=== PATIENT | female | born 1930 | race African-American/Black ===

== ENCOUNTER 2018-07-10 09:07 | Emergency (ER) | payer OTHER ==
--- OUTSIDE RECORDS SUMMARY | 2018-07-10 09:10 | XMS REPORT | Clinical Summary ---
:1930 Author Organization [facility] Address [address] [place] [address] Care Team Providers Name Role Phone Unavailable Primary Care Provider Unavailable Allergies No Known Allergies Medications Medication Sig Dispensed Refills Start Date End Date Status pravastatin Take 40 mg by mouth 0 Active (PRAVACHOL) 40 MG daily. tablet aspirin 81 MG EC Take 81 mg by mouth. 0 Active tablet allopurinol Take 100 mg by mouth 0 Active (ZYLOPRIM) 100 MG daily. tablet albuterol HFA Inhale 1 puff by 0 Active (VENTOLIN HFA) 90 mouth via inhaler mcg/actuation every 4 (four) hours inhaler as needed for Wheezing. sodium bicarbonate Take 2 tablets by 0 Active 650 MG tablet mouth 4 (four) times daily. acetaminophen-codei Take 1 tablet by 0 Active ne (TYLENOL #3) mouth every 4 (four) 300-30 mg per hours as needed for tablet Pain. insulin glargine Inject 10 Units 0 Active (LANTUS) 100 subcutaneously every unit/mL injection morning Use as directed . amLODIPine Take 1 tablet (10 mg 30 tablet 1 07/20/2016 Active (NORVASC) 10 MG total) by mouth tablet daily. Active Problems Problem Noted Date Acute on chronic diastolic CHF (congestive heart failure), NYHA class 1 2016 Anemia of chronic disease 07/19/2016 Dyspnea on exertion 07/19/2016 Occult blood positive stool 07/18/2016 Social History Tobacco Use Types Packs/Day Years Used Date Never Smoker Tobacco Cessation: Counseling Given: No Alcohol Use Drinks/Week oz/Week Comments No Sex Assigned at Date Recorded Not on file Job Start Date Occupation Industry Not on file Not on file Not on file Travel History Travel Start Travel End No recent travel history available. Last Filed Vital Signs Not on file Plan of Treatment Not on file Results Not on fileafter 07/09/2017 Insurance Payer Benefit Plan / Subscriber ID Type Phone Address Group [facility] xxxxxxxxx [facility] Contracted MEDICARE MGD [facility] MEDICAID MEDICAID [facility] xxxxxxxxx Medicaid Advance Directives For more information, please contact:[address] [phone] Code Status Date Activated Date Inactivated Comments Full Code 07/18/2016 6:52 PM 07/20/2016 6:22 PM This code status was determined by: Patient
--- OUTSIDE RECORDS SUMMARY | 2018-07-10 09:10 | XMS REPORT ---
:1930 Author Organization [facility] Address [address] [place] [address] [address]. [address] [place] [address] Care Team Providers Name Role Phone JOE GUTIÉRREZ Unavailable Unavailable Problems This patient has no known problems. Allergies, Adverse Reactions, Alerts This patient has no known allergies or adverse reactions. Medications This patient has no known medications. Results Test Description Test Time Test Comments Text Results Atomic Results Result Comments PERIPHERAL BLOOD SMEAR - PATHOLOGIST REVIEW 2016-07-20 13:08:00 Test Item Value Reference Range Comments RBC MORPHOLOGY (BEAKER) (test ntvt=3177) Anisocytosis PERIPHERAL SMR REVIEW (BEAKER) (test Cell counts confirmed. bdeh=4232) [id number] (BEAKER) (test Kierra Stroud M.D. (electronic ufuv=4264) signature) POCT-GLUCOSE [id number] 12:33:00 Test Item Value Reference Range Comments POC-GLUCOSE METER (BEAKER) 191 mg/dL 70-[address] [facility] [address] [facility] (test ugqi=1953) [facility] [address] HEMOGLOBIN [id number] 09:06:00 Test Item Value Reference Range Comments HEMOGLOBIN A1C (BEAKER) (test vkyv=766) 5.8 % 4.3-6.1 CBC WITH PLATELET COUNT + MANUAL [id number] 08:45:00 Test Item Value Reference Range Comments WHITE BLOOD CELL COUNT (BEAKER) (test ldbw=360) 7.4 K/ L 4.0-10.0 RED BLOOD CELL COUNT (BEAKER) (test zcih=370) 3.56 M/ L 4.00-5.00 HEMOGLOBIN (BEAKER) (test rajz=853) 9.9 GM/DL 12.0-15.0 HEMATOCRIT (BEAKER) (test vizw=486) 31.2 % 36.0-45.0 MEAN CORPUSCULAR VOLUME (BEAKER) (test aikt=473) 87.6 fL 82.0-99.0 MEAN CORPUSCULAR HEMOGLOBIN (BEAKER) (test 27.7 pg 27.0-33.0 thhj=805) MEAN CORPUSCULAR HEMOGLOBIN CONC (BEAKER) (test 31.6 GM/DL 32.0-36.0 rjgt=592) RED CELL DISTRIBUTION WIDTH (BEAKER) (test 15.4 % 10.3-14.2 bpxb=363) PLATELET COUNT (BEAKER) (test agry=607) 403 K/CU MM 150-430 MEAN PLATELET VOLUME (BEAKER) (test zmfb=859) 7.6 fL 6.5-10.5 NUCLEATED RED BLOOD CELLS (BEAKER) (test 0 /100 WBC 0-0 fsnf=721) 0.00(MANUAL DIFFERENTIAL)2016-07-20 08:45:00 Test Item Value Reference Range Comments NEUTROPHILS - REL (DIFF) (BEAKER) (test wbfc=9756) 60 % LYMPHOCYTES - REL (DIFF) (BEAKER) (test qnbk=1059) 22 % MONOCYTES - REL (DIFF) (BEAKER) (test aqcj=7487) 6 % EOSINOPHILS - REL (DIFF) (BEAKER) (test juqm=6008) 6 % BANDS - REL (DIFF) (BEAKER) (test jout=3396) 6 % 0-10 NEUTROPHILS - ABS (DIFF) (BEAKER) (test mlbv=6427) 4.44 K/ L 1.80-8.00 LYMPHOCYTES - ABS (DIFF) (BEAKER) (test pdhj=2790) 1.63 K/ L 1.48-4.50 MONOCYTES - ABS (DIFF) (BEAKER) (test opmi=5854) 0.44 K/ L 0.00-1.30 EOSINOPHILS - ABS (DIFF) (BEAKER) (test cuww=4678) 0.44 K/ L 0.00-0.50 BANDS-ABS (DIFF) (BEAKER) (test uznm=9244) 0.4 K/ L 0.0-0.8 TOTAL COUNTED (BEAKER) (test pevt=1157) 100 BANDS + SEGMENTED NEUTROPHILS (BEAKER) (test 4.88 nsbh=2786) WBC MORPHOLOGY (BEAKER) (test nvri=475) Normal PLT MORPHOLOGY (BEAKER) (test tcuo=077) Normal RBC MORPHOLOGY (BEAKER) (test xcqd=754) Normal POCT-GLUCOSE [id number] 08:41:00 Test Item Value Reference Range Comments POC-GLUCOSE METER ([facility]) 132 mg/dL 70-110 TESTED AT [address] (test wudy=2131) [facility] [address] T4, [id number] 03:38:00 Test Item Value Reference Range Comments FREE T4 (BEAKER) (test trnv=630) 1.15 ng/dL 0.70-1.48 [id number] 03:38:00 Test Item Value Reference Range Comments THYROID STIMULATING HORMONE (BEAKER) (test 4.50 uIU/mL 0.35-4.94 xvoy=330) B-TYPE NATRIURETIC FACTOR (BNP)2016-07-20 03:23:00 Test Item Value Reference Range Comments B-TYPE NATRIURETIC PEPTIDE (BEAKER) (test 255 pg/mL 0-100 irtq=674) LIPID [id number] 03:19:00 Test Item Value Reference Range Comments TRIGLYCERIDES (BEAKER) (test ytov=172) 106 mg/dL CHOLESTEROL (BEAKER) (test ebwl=942) 152 mg/dL HDL CHOLESTEROL (BEAKER) (test oyji=877) 42 mg/dL LDL CHOLESTEROL CALCULATED (BEAKER) (test 89 mg/dL fwdk=322) Triglyceride Reference Range: Low Risk <150 Borderline 150- 199 High Risk 200-499 Very High Risk >=500Cholesterol Reference Range: Low Risk <200 Borderline 200-239 High Risk > 240HDL Cholesterol Reference Range: Low Risk >=60 High Risk <40LDL Cholesterol Reference Range: Optimal <100 Near Optimal 100-129 Borderline 130-159 High 160-189 Very High >=190POCT-GLUCOSE [id number] 20:45:00 Test Item Value Reference Range Comments POC-GLUCOSE METER (AKER) 145 mg/dL 70-110 TESTED AT [place] [id number] [facility] (test vsme=2359) [facility] [address] CREATININE, RANDOM [id number] 17:54:00 Test Item Value Reference Range Comments CREATININE URINE ([facility]) (test vgyj=317) 21.0 mg/dL Reference Range: No NormalsPROTEIN, RANDOM [id number] 17:54:00 Test Item Value Reference Range Comments PROTEIN, URINE (BEAKER) (test hplm=9298) 15 mg/dL 0-14 SODIUM, RANDOM [id number] 17:54:00 Test Item Value Reference Range Comments SODIUM URINE (BEAKER) (test wlci=529) 146 meq/L Reference Range: No NormalsURINALYSIS W/ [id number] 17:42:00 Test Item Value Reference Range Comments COLOR (BEAKER) (test rkhh=329) Colorless CLARITY (BEAKER) (test sbek=341) Clear SPECIFIC GRAVITY UA (BEAKER) (test jrns=682) 1.005 1.001-1.035 PH UA (BEAKER) (test ncnx=140) 7.5 5.0-8.0 PROTEIN UA (BEAKER) (test zgoo=623) Negative Negative GLUCOSE UA (BEAKER) (test lupq=720) Negative Negative KETONES UA (BEAKER) (test trin=853) Negative Negative BILIRUBIN UA (BEAKER) (test vvlt=807) Negative Negative BLOOD UA (BEAKER) (test owmy=341) Negative Negative NITRITE UA (BEAKER) (test rumf=446) Negative Negative LEUKOCYTE ESTERASE UA (BEAKER) (test oozx=997) Negative Negative UROBILINOGEN UA (BEAKER) (test ggbw=499) 0.2 mg/dL 0.2-1.0 RBC UA (BEAKER) (test fhxe=058) 0 /HPF WBC UA (BEAKER) (test ovra=198) 1 /HPF SQUAMOUS EPITHELIAL (BEAKER) (test btgx=943) < /HPF SOURCE(BEAKER) (test iiiv=9606) CREATINE KINASE (CK), TOTAL AND [id number] 17:28:00 Test Item Value Reference Range Comments CREATINE KINASE TOTAL (BEAKER) (test jrmk=219) 59 U/L 29-200 CREATINE KINASE-MB (BEAKER) (test kvlo=035) 1.2 ng/mL 0.0-6.6 CREATINE KINASE-MB INDEX (BEAKER) (test hqzz=048) 2.0 % Effective 01/08/2014: CK-MB Reference Range ChangeNew: 0.0-6.6 Previous: 0.0- 4.9CK-MB Reference Range:<6.7 Normal6.7-10.0 Borderline>10.0 AbnormalTROPONIN [id number] 17:28:00 Test Item Value Reference Range Comments TROPONIN I (BEAKER) (test ezlh=189) 0.11 ng/mL 0.00-0.03 Effective 01/08/2014: Reference Range ChangeNew: 0.00-0.03 Previous 0.00- 0.15Troponin I (TnI) levels must be interpreted in the context of the presenting symptoms and the clinical findings. Elevated TnI levels indicate myocardial damage, but are not specific for ischemic heart disease. Elevated TnI levels are seen in patients with other cardiac conditions (including myocarditis and congestive heartfailure), and slight TnI elevations occur in patients with other conditions, including sepsis, renalfailure, acidosis, acute neurological disease, and persistent tachyarrhythmia.POCT-GLUCOSE [id number] 16:56:00 Test Item Value Reference Range Comments POC-GLUCOSE METER (BEAKER) 104 mg/dL 70-110 TESTED AT [address] (test nuvd=1279) [place] [address] HEMOGLOBIN AND [id number] 12:32:00 Test Item Value Reference Range Comments HEMOGLOBIN (BEAKER) (test bmuv=653) 10.0 GM/DL 12.0-15.0 HEMATOCRIT (BEAKER) (test pobq=624) 32.0 % 36.0-45.0 POCT-GLUCOSE [id number] 12:08:00 Test Item Value Reference Range Comments POC-GLUCOSE METER (BEAKER) 117 mg/dL 70-110 TESTED AT [address] (test lfyh=3035) [place] [address] POCT-GLUCOSE [id number] 07:34:00 Test Item Value Reference Range Comments POC-GLUCOSE METER (BEAKER) 84 mg/dL 70-110 TESTED AT [address] (test deon=8437) [place] [address] COMPREHENSIVE METABOLIC [id number] 05:29:00 Test Item Value Reference Range Comments TOTAL PROTEIN (BEAKER) 6.7 gm/dL 6.0-8.3 Specimen slightly (test zzvf=149) hemolyzed ALBUMIN (BEAKER) (test 3.2 g/dL 3.5-5.0 Specimen slightly pwat=3794) hemolyzed ALKALINE PHOSPHATASE 70 U/L 40-150 (BEAKER) (test kbnz=777) BILIRUBIN TOTAL (BEAKER) 0.7 mg/dL 0.2-1.2 Specimen slightly (test jpew=989) hemolyzed SODIUM (BEAKER) (test 141 meq/L 136-145 otxk=380) POTASSIUM (BEAKER) (test 3.8 meq/L 3.5-5.1 Specimen slightly gklm=464) hemolyzed CHLORIDE (BEAKER) (test 108 meq/L 98-107 govw=701) CO2 (BEAKER) (test 24 meq/L 22-29 gwbg=571) BLOOD UREA NITROGEN 14 mg/dL 7-21 (BEAKER) (test xhxm=758) CREATININE (BEAKER) (test 1.51 mg/dL 0.57-1.25 Specimen slightly xjxx=820) hemolyzed GLUCOSE RANDOM (BEAKER) 73 mg/dL 70-105 (test sagp=347) CALCIUM (BEAKER) (test 9.0 mg/dL 8.4-10.2 nbxp=851) AST (SGOT) (BEAKER) (test 16 U/L 5-34 Specimen slightly zyph=448) hemolyzed ALT (SGPT) (BEAKER) (test 8 U/L 6-55 Specimen slightly kwgw=256) hemolyzed EGFR (BEAKER) (test 40 mL/min/1.73 sq m ESTIMATED GFR IS NOT ebba=6598) ACCURATE CREATININE CLEARANCE IN PREDICTING GLOMERULAR FILTRATION RATE. ESTIMATED GFR IS NOT APPLICABLE FOR DIALYSIS PATIENTS. CBC W/PLT COUNT & AUTO [id number] 05:06:00 Test Item Value Reference Range Comments WHITE BLOOD CELL COUNT (BEAKER) (test hjfj=914) 7.3 K/ L 4.0-10.0 RED BLOOD CELL COUNT (BEAKER) (test idjl=119) 3.27 M/ L 4.00-5.00 HEMOGLOBIN (BEAKER) (test diln=689) 9.0 GM/DL 12.0-15.0 HEMATOCRIT (BEAKER) (test hryq=701) 28.4 % 36.0-45.0 MEAN CORPUSCULAR VOLUME (BEAKER) (test rbcp=808) 86.9 fL 82.0-99.0 MEAN CORPUSCULAR HEMOGLOBIN (BEAKER) (test 27.5 pg 27.0-33.0 mjpn=906) MEAN CORPUSCULAR HEMOGLOBIN CONC (BEAKER) (test 31.7 GM/DL 32.0-36.0 gkbe=249) RED CELL DISTRIBUTION WIDTH (BEAKER) (test 15.4 % 10.3-14.2 cxpt=729) PLATELET COUNT (BEAKER) (test zrcb=017) 378 K/CU MM 150-430 MEAN PLATELET VOLUME (BEAKER) (test pypj=989) 7.5 fL 6.5-10.5 NUCLEATED RED BLOOD CELLS (BEAKER) (test 0 /100 WBC 0-0 qnny=418) NEUTROPHILS RELATIVE PERCENT (BEAKER) (test 59 % zbzt=329) LYMPHOCYTES RELATIVE PERCENT (BEAKER) (test 29 % vvit=487) MONOCYTES RELATIVE PERCENT (BEAKER) (test 6 % ercn=274) EOSINOPHILS RELATIVE PERCENT (BEAKER) (test 6 % lwef=486) BASOPHILS RELATIVE PERCENT (BEAKER) (test 1 % glai=890) NEUTROPHILS ABSOLUTE COUNT (BEAKER) (test 4.28 K/ L 1.80-8.00 ikvv=738) LYMPHOCYTES ABSOLUTE COUNT (BEAKER) (test 2.08 K/ L 1.48-4.50 oxug=718) MONOCYTES ABSOLUTE COUNT (BEAKER) (test 0.43 K/ L 0.00-1.30 cncq=506) EOSINOPHILS ABSOLUTE COUNT (BEAKER) (test 0.44 K/ L 0.00-0.50 fvoo=130) BASOPHILS ABSOLUTE COUNT (BEAKER) (test 0.07 K/ L 0.00-0.20 lwym=539) IRON, TIBC, % SAT. (WITHOUT FERRITIN)2016-07-19 00:55:00 Test Item Value Reference Range Comments IRON (BEAKER) (test pteh=346) 113 ug/dL 40-160 TOTAL IRON BINDING CAPACITY (BEAKER) (test 241 ug/dL 250-450 fmcj=609) IRON % SATURATION (2) (BEAKER) (test uiee=3101) 47 % 20-55 CREATINE KINASE (CK), TOTAL AND [id number] 00:42:00 Test Item Value Reference Range Comments CREATINE KINASE TOTAL (BEAKER) (test nvib=206) 56 U/L 29-200 CREATINE KINASE-MB (BEAKER) (test fcmk=426) 1.3 ng/mL 0.0-6.6 CREATINE KINASE-MB INDEX (BEAKER) (test amyl=208) 2.3 % Effective 01/08/2014: CK-MB Reference Range ChangeNew: 0.0-6.6 Previous: 0.0- 4.9CK-MB Reference Range:<6.7 Normal6.7-10.0 Borderline>10.0 AbnormalTROPONIN [id number] 00:42:00 Test Item Value Reference Range Comments TROPONIN I (BEAKER) (test dvle=485) 0.11 ng/mL 0.00-0.03 Effective 01/08/2014: Reference Range ChangeNew: 0.00-0.03 Previous 0.00- 0.15Troponin I (TnI) levels must be interpreted in the context of the presenting symptoms and the clinical findings. Elevated TnI levels indicate myocardial damage, but are not specific for ischemic heart disease. Elevated TnI levels are seen in patients with other cardiac conditions (including myocarditis and congestive heartfailure), and slight TnI elevations occur in patients with other conditions, including sepsis, renalfailure, acidosis, acute neurological disease, and persistent tachyarrhythmia.HEMOGLOBIN AND [id number] 00:26:00 Test Item Value Reference Range Comments HEMOGLOBIN (BEAKER) (test knxl=424) 9.3 GM/DL 12.0-15.0 HEMATOCRIT (BEAKER) (test jncr=104) 28.4 % 36.0-45.0 RETICULOCYTE [id number] 00:22:00 Test Item Value Reference Range Comments RETICULOCYTE COUNT PCT (BEAKER) (test glgn=505) 2.1 % 0.4-2.9 [id number] 21:52:00 Test Item Value Reference Range Comments FERRITIN (BEAKER) (test hkbu=683) 99 ng/mL 5-275 Effective 01/08/2014: Reference Range ChangeNew: Male 5-275 Previous: Male 22-322 Female 5-275 Female 10-291VITAMIN B12 AND [id number] 21:52:00 Test Item Value Reference Range Comments VITAMIN B12 (BEAKER) (test zgeo=848) 346 pg/mL 213-816 FOLATE (BEAKER) (test qmiv=459) 9.8 ng/mL >=7.0 Effective 01/08/2014: Folate Reference Range ChangeNew: >=7.0 Previous: & gt;=5.4POCT-GLUCOSE [id number] 21:26:00 Test Item Value Reference Range Comments POC-GLUCOSE METER (NIKKI) 101 mg/dL 70-[address] [facility] [address] (test epgj=1854) [place] [address] CREATINE KINASE (CK), TOTAL AND [id number] 21:22:00 Test Item Value Reference Range Comments CREATINE KINASE TOTAL (BEAKER) (test esda=451) 54 U/L 29-200 CREATINE KINASE-MB (BEAKER) (test zoqo=108) 1.3 ng/mL 0.0-6.6 CREATINE KINASE-MB INDEX (BEAKER) (test xqaw=068) 2.4 % Effective 01/08/2014: CK-MB Reference Range ChangeNew: 0.0-6.6 Previous: 0.0- 4.9CK-MB Reference Range:<6.7 Normal6.7-10.0 Borderline>10.0 AbnormalTROPONIN [id number] 21:22:00 Test Item Value Reference Range Comments TROPONIN I (BEAKER) (test makl=764) 0.10 ng/mL 0.00-0.03 Effective 01/08/2014: Reference Range ChangeNew: 0.00-0.03 Previous 0.00- 0.15Troponin I (TnI) levels must be interpreted in the context of the presenting symptoms and the clinical findings. Elevated TnI levels indicate myocardial damage, but are not specific for ischemic heart disease. Elevated TnI levels are seen in patients with other cardiac conditions (including myocarditis and congestive heartfailure), and slight TnI elevations occur in patients with other conditions, including sepsis, renalfailure, acidosis, acute neurological disease, and persistent tachyarrhythmia.
[2018-07-10 10:58] LABS: Urine Blood 2+ (NEG); Urine Glucose NEGATIVE (NEG); Urine Protein 2+ (NEG); Urine Specific Gravity 1.015 (1.005-1.030); Urine pH 8.5 (5.0-7.0)
[2018-07-10 11:01] LABS: Urine Bacteria >50 /HPF (<20); Urine Culture Reflex Order NOT NEEDED
--- NOTE | 2018-07-10 11:17 | RAD REPORT ---
EXAM DESCRIPTION: RAD - Knee Left 2 View - 07/10/2018 10:15 am CLINICAL HISTORY: Left knee pain, fall 2 days earlier COMPARISON: None. FINDINGS: Severe knee joint degenerative changes are present. Patella femoral joint space narrowing is seen with significant marginal spurring. There significant narrowing of both the medial and latera l compartments with moderate size marginal spurs. There are dense calcifications within the meniscal tissue.A fracture is not identifiable. No pathologic bone process. Moderate joint effusion is present . Delete select IMPRESSION: Severe tri compartment knee joint degenerative change as detailed. No fracture or acute bone process confirmed. Moderate joint effusion. Clinical concerns for internal derangement or occult bony injury could be further assessed with MR im aging.
--- NOTE | 2018-07-10 11:37 | RAD REPORT ---
EXAM DESCRIPTION: RAD - Femur Left - 07/10/2018 10:15 am CLINICAL HISTORY: Left leg pain FINDINGS: The bones are osteoporotic. No no fracture is visualized. However there is a moderate knee joint effusion present. If the patient has clinical symptoms to suggest an occult fracture then eith er further evaluation with MRI or CT would be recommended
[2018-07-10] MEDS ORDERED: HYDROCODONE/APAP 7.5/325 MG TAB ONE (12:04)
--- NOTE | 2018-07-10 12:17 | ER ---
Nurse's Notes [facility] Name: Colleen Mcneil Age: 87 yrs Sex: Female : 1930 Arrival Date: 07/10/2018 Time: 09:11 Bed 19 Private MD: Diagnosis: Contusion of left knee;Urinary tract infection, site not specified Presentation: 07/10 09:11 Presenting complaint: EMS states: LEFT LEG PAIN, 2 DAYS S/P FALL FROM CHAIR. Transition bp of care: patient was not received from another setting of care. Onset of symptoms is unknown. Risk Assessment: Do you want to hurt yourself or someone else? Patient reports no desire to harm self or others. Initial Sepsis Screen: Does the patient meet any 2 criteria? HR > 90 bpm. No. Patient's initial sepsis screen is negative. Does the patient have a suspected source of infection? No. Patient's initial sepsis screen is negative. Care prior to arrival: None. 09:11 Method Of Arrival: EMS: [facility] bp 09:11 Acuity: PRABHU 3 bp Triage Assessment: 09:14 General: Appears in no apparent distress. uncomfortable, obese, Behavior is bp cooperative, appropriate for age, anxious. Pain: Complains of pain in left leg. EENT: No deficits noted. Neuro: Level of Consciousness is awake, alert, obeys commands, Oriented to person, place, time, situation, Appropriate for age. Cardiovascular: No deficits noted. Respiratory: Airway is patent Respiratory effort is even, unlabored, Respiratory pattern is regular, symmetrical. GI: No signs and/or symptoms were reported involving the gastrointestinal system. : No signs and/or symptoms were reported regarding the genitourinary system. Derm: No deficits noted. Musculoskeletal: Circulation, motion, and sensation intact. Range of motion: limited in left knee. Historical: - Allergies: 09:14 No Known Allergies; bp - Home Meds: :14 ProAir HFA inhalation [Active]; pravastatin 40 mg Oral tab 1 tab once daily [Active]; bp Lantus 100 unit/mL Sub-Q soln 10 unit daily [Active]; Furosemide Oral [Active]; aspirin 81 mg Oral chew 1 tab once daily [Active]; Allopurinol Oral [Active]; Aldactone Oral [Active]; - PMHx: 09:14 Asthma; Diabetes - IDDM; Hypertension; bp - Immunization history:: Adult Immunizations up to date. - Social history:: Smoking status: Patient/guardian denies using tobacco. - Ebola Screening: : No symptoms or risks identified at this time. Screenin:17 Abuse screen: Denies threats or abuse. Denies injuries from another. Nutritional bp screening: No deficits noted. Tuberculosis screening: No symptoms or risk factors identified. Fall Risk Fall in past 12 months (25 points). No secondary diagnosis (0 pts). IV access (20 points). Ambulatory Aid- Crutches/Cane/Walker (15 pts). Mental Status- Oriented to own ability (0 pts). Total Horton Fall Scale indicates High Risk Score (45 or more points). Fall prevention measures have been instituted. Side Rails Up X 2 Placed Close to Nursing Station Frequent Obs/Assessments Occuring. Assessment: 09:15 General: SEE TRIAGE NOTE. bp 10:30 Reassessment: PT TO XRAY, ALL CURRENT ORDERS COMPLETED, RESULTS PENDING. bp 12:39 Reassessment: PT D/C HOME VIA W/C WITH FAMILY, DX WITH LEFT KNEE CONTUSION AND UTI. bp Vital Signs: 09:14 BP 135 / 51; Pulse 115; Resp 18; Temp 98; Pulse Ox 100% ; Weight 81.65 kg; Height 5 ft. bp 5 in. (165.10 cm); 10:07 BP 141 / 58; Pulse 101; Resp 20; Temp 99.4(TE); Pulse Ox 98% ; mh5 10:55 BP 107 / 90; Pulse 92; Resp 18; Temp 98.9(TE); Pulse Ox 96% on R/A; mh5 11:41 BP 150 / 73; Pulse 94; Resp 20; Temp 98.0(TE); Pulse Ox 100% ; mh5 12:22 BP 106 / 67; Pulse 69; Resp 16; Temp 98; Pulse Ox 97% ; bp 09:14 Body Mass Index 29.95 (81.65 kg, 165.10 cm) bp ED Course: 09:11 Patient arrived in ED. bp 09:12 Triage completed. bp 09:14 Nathan Samuel PA is PHCP. jr8 09:14 Fredy Lopez MD is Attending Physician. jr8 09:14 Arm band placed on. bp 09:17 Patient has correct armband on for positive identification. Bed in low position. Call bp light in reach. Side rails up X 1. Side rails up X2. 09:17 Maintain EMS IV. Dressing intact. Good blood return noted. Site clean \T\ dry. Gauge \T\ bp site: 20 GAUGE LEFT FA. 09:55 XRAY Femur LEFT In Process Unspecified. EDMS 09:55 Knee Left 2 View In Process Unspecified. EDMS 10:41 Hi Brown, RN is Primary Nurse. bp 12:40 No provider procedures requiring assistance completed. IV discontinued, intact, bp bleeding controlled, No redness/swelling at site. Pressure dressing applied. Administered Medications: 11:53 Drug: [place] (7.5 mg-325 mg) 1 tabs Route: PO; bp 12:21 Follow up: Response: No adverse reaction; Pain is decreased bp Outcome: 12:16 Discharge ordered by MD. stevenson 12:50 Discharged to home via wheelchair, with family. bp 12:50 Condition: stable 12:50 Discharge instructions given to patient, family, Instructed on discharge instructions, follow up and referral plans. medication usage, Demonstrated understanding of instructions, follow-up care, medications, Prescriptions given X 2. 12:51 Patient left the ED. bp Signatures: Dispatcher [employer] EDMS Nathan Samuel PA PA jr8 Martinez, Maria [facility] Hi Brown, RN RN bp
--- NOTE | 2018-07-10 12:17 | EDPHYS ---
Physician Documentation [facility] Name: Colleen Mcneil Age: 87 yrs Sex: Female : 1930 Arrival Date: 07/10/2018 Time: 09:11 Bed 19 Private MD: ED Physician Fredy Lopez HPI: 07/10 09:29 This 87 yrs old Black Female presents to ER via EMS with complaints of Knee Pain. jr8 09:29 The patient presents with decreased range of motion, pain, tenderness. The complaints jr8 affect the left knee. Context: The problem was sustained at home, resulted from the patient falling, the patient is not able to bear weight. Onset: The symptoms/episode began/occurred acutely, 2 day(s) ago. Modifying factors: The symptoms are alleviated by nothing. the symptoms are aggravated by movement, weight bearing, bending knee. Associated signs and symptoms: The patient has no apparent associated signs or symptoms. Severity of symptoms: At their worst the symptoms were moderate, in the emergency department the symptoms are unchanged. The patient has not experienced similar symptoms in the past. The patient has not recently seen a physician. Historical: - Allergies: 09:14 No Known Allergies; bp - Home Meds: 09:14 ProAir HFA inhalation [Active]; pravastatin 40 mg Oral tab 1 tab once daily [Active]; bp Lantus 100 unit/mL Sub-Q soln 10 unit daily [Active]; Furosemide Oral [Active]; aspirin 81 mg Oral chew 1 tab once daily [Active]; Allopurinol Oral [Active]; Aldactone Oral [Active]; - PMHx: 09:14 Asthma; Diabetes - IDDM; Hypertension; bp - Immunization history:: Adult Immunizations up to date. - Social history:: Smoking status: Patient/guardian denies using tobacco. - Ebola Screening: : No symptoms or risks identified at this time. ROS: 09:29 Eyes: Negative for injury, pain, redness, and discharge, ENT: Negative for injury, jr8 pain, and discharge, Neck: Negative for injury, pain, and swelling, Cardiovascular: Negative for chest pain, palpitations, and edema, Respiratory: Negative for shortness of breath, cough, wheezing, and pleuritic chest pain, Abdomen/GI: Negative for abdominal pain, nausea, vomiting, diarrhea, and constipation, Back: Negative for injury and pain, Skin: Negative for injury, rash, and discoloration, Neuro: Negative for headache, weakness, numbness, tingling, and seizure. 09:29 MS/extremity: Positive for decreased range of motion, pain, swelling, tenderness, of the left knee. Exam: 09:29 Head/Face: Normocephalic, atraumatic. Neck: Trachea midline, no thyromegaly or masses jr8 palpated, and no cervical lymphadenopathy. Supple, full range of motion without nuchal rigidity, or vertebral point tenderness. No Meningismus. Cardiovascular: Regular rate and rhythm with a normal S1 and S2. No gallops, murmurs, or rubs. Normal PMI, no JVD. No pulse deficits. Respiratory: Lungs have equal breath sounds bilaterally, clear to auscultation and percussion. No rales, rhonchi or wheezes noted. No increased work of breathing, no retractions or nasal flaring. Abdomen/GI: Soft, non-tender, with normal bowel sounds. No distension or tympany. No guarding or rebound. No evidence of tenderness throughout. Back: No spinal tenderness. No costovertebral tenderness. Full range of motion. Skin: Warm, dry with normal turgor. Normal color with no rashes, no lesions, and no evidence of cellulitis. Neuro: Awake and alert, GCS 15, oriented to person, place, time, and situation. Cranial nerves II-XII grossly intact. Motor strength 5/5 in all extremities. Sensory grossly intact. Cerebellar exam normal. Normal gait. 09:29 Musculoskeletal/extremity: Extremities: grossly normal except: noted in the left leg: mild pain to left anterior knee and mid thigh. No bruising, abrasions, or lacerations noted. Rest of extremities unremarkable , ROM: full active range of motion, full passive range of motion, limited active range of motion, in the left leg, limited passive range of motion, in the left leg, Circulation is intact in all extremities. Sensation intact. Vital Signs: 09:14 BP 135 / 51; Pulse 115; Resp 18; Temp 98; Pulse Ox 100% ; Weight 81.65 kg; Height 5 ft. bp 5 in. (165.10 cm); 10:07 BP 141 / 58; Pulse 101; Resp 20; Temp 99.4(TE); Pulse Ox 98% ; mh5 10:55 BP 107 / 90; Pulse 92; Resp 18; Temp 98.9(TE); Pulse Ox 96% on R/A; mh5 11:41 BP 150 / 73; Pulse 94; Resp 20; Temp 98.0(TE); Pulse Ox 100% ; mh5 12:22 BP 106 / 67; Pulse 69; Resp 16; Temp 98; Pulse Ox 97% ; bp 09:14 Body Mass Index 29.95 (81.65 kg, 165.10 cm) bp MDM: 09:14 Patient medically screened. jr8 12:14 Data reviewed: vital signs, nurses notes, radiologic studies, plain films. Data jr8 interpreted: Pulse oximetry: on room air is 100 %. Interpretation: normal. Counseling: I had a detailed discussion with the patient and/or guardian regarding: the historical points, exam findings, and any diagnostic results supporting the discharge/admit diagnosis, radiology results, the need for outpatient follow up, a family practitioner, to return to the emergency department if symptoms worsen or persist or if there are any questions or concerns that arise at home. 07/10 10:42 Order name: Urine Microscopic Only; Complete Time: 11:38 bp 07/10 10:51 Order name: Urine Dipstick--Ancillary (enter results); Complete Time: 11:38 bd 07/10 09:14 Order name: XRAY Femur LEFT jr8 07/10 09:54 Order name: Knee Left 2 View [facility] 07/10 10:42 Order name: Urine Dipstick-Ancillary (obtain specimen); Complete Time: 10:43 bp Administered Medications: 11:53 Drug: Esopus (7.5 mg-325 mg) 1 tabs Route: PO; bp 12:21 Follow up: Response: No adverse reaction; Pain is decreased bp Disposition: 17:20 Co-signature as Attending Physician, Fredy Lopez MD. rn Disposition: 07/10/18 12:16 Discharged to Home. Impression: Contusion of left knee, Urinary tract infection, site not specified. - Condition is Stable. - Discharge Instructions: Urinary Tract Infection, Adult, Knee Pain. - Prescriptions for Tylenol- Codeine #3 300-30 mg Oral Tablet - take 2 tablets by ORAL route every 6 hours As needed; 20 tablet. Macrobid 100 mg Oral Capsule - take 1 capsule by ORAL route every 12 hours for 7 days; 14 capsule. - Medication Reconciliation Form, Thank You Letter, Antibiotic Education, Prescription Opioid Use form. - Follow up: Private Physician; When: 2 - 3 days; Reason: Recheck today's complaints, Continuance of care, Re-evaluation by your physician. - Problem is new. - Symptoms have improved. Signatures: Dispatcher [employer] [facility] Fredy Lopez MD MD rn Nathan Samuel PA PA jr8 Hi Brown RN RN bp Corrections: (The following items were deleted from the chart) 09:54 09:16 Knee Left 3 View+RAD.RAD.BRZ ordered. [facility] EDPR 12:16 12:16 07/10/2018 12:16 Discharged to Home. Impression: Contusion of left knee. jr8 Condition is Stable. Forms are Medication Reconciliation Form, Thank You Letter, Antibiotic Education, Prescription Opioid Use. Follow up: Private Physician; When: 2 - 3 days; Reason: Recheck today's complaints, Continuance of care, Re-evaluation by your physician. Problem is new. Symptoms have improved. jr8 12:51 12:16 07/10/2018 12:16 Discharged to Home. Impression: Contusion of left knee; Urinary bp tract infection, site not specified. Condition is Stable. Forms are Medication Reconciliation Form, Thank You Letter, Antibiotic Education, Prescription Opioid Use. Follow up: Private Physician; When: 2 - 3 days; Reason: Recheck today's complaints, Continuance of care, Re-evaluation by your physician. Problem is new. Symptoms have improved. jr8
== END 2018-07-10 12:51 | disposition home or self-care (01) ==
LOC: ER 09:07
DX: S80.02XA Contusion of left knee, initial encounter (principal); W19.XXXA Unspecified fall, initial encounter; Y92.009 Unspecified place in unspecified non-institutional (private) residence as the place of occurrence of the external cause; N39.0 Urinary tract infection, site not specified; Z79.82 Long term (current) use of aspirin; J45.909 Unspecified asthma, uncomplicated; E11.9 Type 2 diabetes mellitus without complications; I10 Essential (primary) hypertension; Z79.4 Long term (current) use of insulin
CPT/HCPCS: 81003; 81015; 99284

== ENCOUNTER 2018-07-18 11:06 | Inpatient (IN) | payer OTHER ==
--- OUTSIDE RECORDS SUMMARY | 2018-07-18 11:08 | XMS REPORT | Clinical Summary ---
:1930 Author Organization [facility] Address [address] [place] [address] Care Team Providers Name Role Phone Unavailable [...] Not on file Results Not on fileafter 07/17/2017 Insurance Payer Benefit Plan / Subscriber ID Type Phone Address Group [facility] xxxxxxxxx [facility] Contracted MEDICARE [facility] MEDICAID MEDICAID [facility] xxxxxxxxx Medicaid Advance Directives For more information, please contact:[address] [phone] Code Status Date Activated Date Inactivated Comments Full Code 07/18/2016 6:52 PM 07/20/2016 6:22 PM This code status was determined by: Patient
--- OUTSIDE RECORDS SUMMARY | 2018-07-18 11:09 | XMS REPORT ---
:1930 [facility] Sergio Hernandez [address] [place] [id number] Care Team Providers Name Role Phone JOE [...] Reference Range Comments RBC MORPHOLOGY (BEAKER) (test eucf=4291) Anisocytosis PERIPHERAL SMR REVIEW (BEAKER) (test Cell counts confirmed. ncvt=3427) [id number] (BEAKER) (test Kierra Stroud M.D. (electronic dnhv=4424) signature) POCT-GLUCOSE [id number] 12:33:00 Test Item Value Reference Range Comments POC-GLUCOSE METER (BEAKER) 191 mg/dL 70-110 TESTED AT [facility] [address] [facility] (test ekbe=5521) [facility] [address] HEMOGLOBIN [id number] 09:06:00 Test Item Value Reference Range Comments HEMOGLOBIN A1C (BEAKER) (test gnzj=795) 5.8 % 4.3-6.1 CBC WITH PLATELET COUNT + MANUAL [id number] 08:45:00 Test Item Value Reference Range Comments WHITE BLOOD CELL COUNT (BEAKER) (test nbow=247) 7.4 K/ L 4.0-10.0 RED BLOOD CELL COUNT (BEAKER) (test zuux=785) 3.56 M/ L 4.00-5.00 HEMOGLOBIN (BEAKER) (test zyiy=795) 9.9 GM/DL 12.0-15.0 HEMATOCRIT (BEAKER) (test xcqg=423) 31.2 % 36.0-45.0 MEAN CORPUSCULAR VOLUME (BEAKER) (test zqog=920) 87.6 fL 82.0-99.0 MEAN CORPUSCULAR HEMOGLOBIN (BEAKER) (test 27.7 pg 27.0-33.0 hkbs=271) MEAN CORPUSCULAR HEMOGLOBIN CONC (BEAKER) (test 31.6 GM/DL 32.0-36.0 juqn=922) RED CELL DISTRIBUTION WIDTH (BEAKER) (test 15.4 % 10.3-14.2 euen=987) PLATELET COUNT (BEAKER) (test hnfr=235) 403 K/CU MM 150-430 MEAN PLATELET VOLUME (BEAKER) (test pfxu=231) 7.6 fL 6.5-10.5 NUCLEATED RED BLOOD CELLS (BEAKER) (test 0 /100 WBC 0-0 lzbu=619) 0.00(MANUAL DIFFERENTIAL)2016-07-20 08:45:00 Test Item Value Reference Range Comments NEUTROPHILS - REL (DIFF) (BEAKER) (test szju=1436) 60 % LYMPHOCYTES - REL (DIFF) (BEAKER) (test gjpc=5156) 22 % MONOCYTES - REL (DIFF) (BEAKER) (test urfi=8060) 6 % EOSINOPHILS - REL (DIFF) (BEAKER) (test romt=4126) 6 % BANDS - REL (DIFF) (BEAKER) (test cxyc=8148) 6 % 0-10 NEUTROPHILS - ABS (DIFF) (BEAKER) (test iztj=0227) 4.44 K/ L 1.80-8.00 LYMPHOCYTES - ABS (DIFF) (BEAKER) (test lnji=5899) 1.63 K/ L 1.48-4.50 MONOCYTES - ABS (DIFF) (BEAKER) (test gmzc=2072) 0.44 K/ L 0.00-1.30 EOSINOPHILS - ABS (DIFF) (BEAKER) (test gxzz=0342) 0.44 K/ L 0.00-0.50 BANDS-ABS (DIFF) (BEAKER) (test urna=5786) 0.4 K/ L 0.0-0.8 TOTAL COUNTED (BEAKER) (test bbox=8241) 100 BANDS + SEGMENTED NEUTROPHILS (BEAKER) (test 4.88 ltfe=8350) WBC MORPHOLOGY (BEAKER) (test espj=494) Normal PLT MORPHOLOGY (BEAKER) (test ssdl=122) Normal RBC MORPHOLOGY (BEAKER) (test bavv=042) Normal POCT-GLUCOSE [id number] 08:41:00 Test Item Value Reference Range Comments POC-GLUCOSE METER ([facility]) 132 mg/dL 70-110 TESTED AT [address] (test sghd=0318) [facility] [address] T4, [id number] 03:38:00 Test Item Value Reference Range Comments FREE T4 ([facility]) (test nqnh=283) 1.15 ng/dL 0.70-1.48 [id number] 03:38:00 Test Item Value Reference Range Comments THYROID STIMULATING HORMONE (AKER) (test 4.50 uIU/mL 0.35-4.94 uadl=743) B-TYPE NATRIURETIC FACTOR (BNP)2016-07-20 03:23:00 Test Item Value Reference Range Comments B-TYPE NATRIURETIC PEPTIDE (AKER) (test 255 pg/mL 0-100 pmqu=702) LIPID [id number] 03:19:00 Test Item Value Reference Range Comments TRIGLYCERIDES (BEAKER) (test igca=735) 106 mg/dL CHOLESTEROL (BEAKER) (test dpnu=314) 152 mg/dL HDL CHOLESTEROL (BEAKER) (test ghpl=093) 42 mg/dL LDL CHOLESTEROL CALCULATED ([facility]) (test 89 mg/dL nonr=552) Triglyceride Reference Range: Low Risk <150 Borderline 150- 199 High Risk 200-499 Very High Risk >=500Cholesterol Reference Range: Low Risk <200 Borderline 200-239 High Risk > 240HDL Cholesterol Reference Range: Low Risk >=60 High Risk <40LDL Cholesterol Reference Range: Optimal <100 Near Optimal 100-129 Borderline 130-159 High 160-189 Very High >=190POCT-GLUCOSE [id number] 20:45:00 Test Item Value Reference Range Comments POC-GLUCOSE METER ([facility]) 145 mg/dL 70-110 TESTED AT [address] (test gvzg=4439) [facility] [address] CREATININE, RANDOM [id number] 17:54:00 Test Item Value Reference Range Comments CREATININE URINE ([facility]) (test onkt=591) 21.0 mg/dL Reference Range: No NormalsPROTEIN, RANDOM [id number] 17:54:00 Test Item Value Reference Range Comments PROTEIN, URINE (BEAKER) (test zhhr=9889) 15 mg/dL 0-14 SODIUM, RANDOM [id number] 17:54:00 Test Item Value Reference Range Comments SODIUM URINE (BEAKER) (test mgsj=120) 146 meq/L Reference Range: No NormalsURINALYSIS W/ [id number] 17:42:00 Test Item Value Reference Range Comments COLOR (BEAKER) (test ocsw=631) Colorless CLARITY (BEAKER) (test cssk=769) Clear SPECIFIC GRAVITY UA (BEAKER) (test lcmu=374) 1.005 1.001-1.035 PH UA (BEAKER) (test rmxw=598) 7.5 5.0-8.0 PROTEIN UA (BEAKER) (test nsem=023) Negative Negative GLUCOSE UA (BEAKER) (test puim=183) Negative Negative KETONES UA (BEAKER) (test ouvu=982) Negative Negative BILIRUBIN UA (BEAKER) (test cxna=919) Negative Negative BLOOD UA (BEAKER) (test hgfy=274) Negative Negative NITRITE UA (BEAKER) (test cncn=061) Negative Negative LEUKOCYTE ESTERASE UA (BEAKER) (test zqxr=103) Negative Negative UROBILINOGEN UA (BEAKER) (test lyav=525) 0.2 mg/dL 0.2-1.0 RBC UA (BEAKER) (test vyyl=048) 0 /HPF WBC UA (BEAKER) (test uvfd=981) 1 /HPF SQUAMOUS EPITHELIAL (BEAKER) (test ufhg=854) < /HPF SOURCE(BEAKER) (test wtca=4420) CREATINE KINASE (CK), TOTAL AND [id number] 17:28:00 Test Item Value Reference Range Comments CREATINE KINASE TOTAL (BEAKER) (test dnxq=222) 59 U/L 29-200 CREATINE KINASE-MB (BEAKER) (test jgbt=274) 1.2 ng/mL 0.0-6.6 CREATINE KINASE-MB INDEX (BEAKER) (test ooqw=210) 2.0 % Effective 01/08/2014: CK-MB Reference Range ChangeNew: 0.0-6.6 Previous: 0.0- 4.9CK-MB Reference Range:<6.7 Normal6.7-10.0 Borderline>10.0 AbnormalTROPONIN [id number] 17:28:00 Test Item Value Reference Range Comments TROPONIN I (BEAKER) (test mvoo=354) 0.11 ng/mL 0.00-0.03 Effective 01/08/2014: Reference Range [...] acidosis, acute neurological disease, and persistent tachyarrhythmia.POCT-GLUCOSE [id number] 16:56:00 Test Item Value Reference Range Comments POC-GLUCOSE METER (BEAKER) 104 mg/dL 70-110 TESTED AT [address] (test knny=5194) [place] [address] HEMOGLOBIN AND [id number] 12:32:00 Test Item Value Reference Range Comments HEMOGLOBIN (BEAKER) (test lipb=352) 10.0 GM/DL 12.0-15.0 HEMATOCRIT (BEAKER) (test xqqf=180) 32.0 % 36.0-45.0 POCT-GLUCOSE [id number] 12:08:00 Test Item Value Reference Range Comments POC-GLUCOSE METER (BEAKER) 117 mg/dL 70-110 TESTED AT [address] (test mmot=6188) [place] [address] POCT-GLUCOSE [id number] 07:34:00 Test Item Value Reference Range Comments POC-GLUCOSE METER (BEAKER) 84 mg/dL 70-110 TESTED AT [address] (test oydg=4287) [place] [address] COMPREHENSIVE METABOLIC [id number] 05:29:00 Test Item Value Reference Range Comments TOTAL PROTEIN (BEAKER) 6.7 gm/dL 6.0-8.3 Specimen slightly (test nnjh=514) hemolyzed ALBUMIN (BEAKER) (test 3.2 g/dL 3.5-5.0 Specimen slightly holr=3754) hemolyzed ALKALINE PHOSPHATASE 70 U/L 40-150 (BEAKER) (test ygro=564) BILIRUBIN TOTAL (BEAKER) 0.7 mg/dL 0.2-1.2 Specimen slightly (test izcq=158) hemolyzed SODIUM (BEAKER) (test 141 meq/L 136-145 qeou=607) POTASSIUM (BEAKER) (test 3.8 meq/L 3.5-5.1 Specimen slightly npyu=077) hemolyzed CHLORIDE (BEAKER) (test 108 meq/L 98-107 rfsi=528) CO2 (BEAKER) (test 24 meq/L 22-29 eaqc=403) BLOOD UREA NITROGEN 14 mg/dL 7-21 (BEAKER) (test ayia=360) CREATININE (BEAKER) (test 1.51 mg/dL 0.57-1.25 Specimen slightly gtfr=160) hemolyzed GLUCOSE RANDOM (BEAKER) 73 mg/dL 70-105 (test njkd=935) CALCIUM (BEAKER) (test 9.0 mg/dL 8.4-10.2 dcke=678) AST (SGOT) (BEAKER) (test 16 U/L 5-34 Specimen slightly mafm=431) hemolyzed ALT (SGPT) (BEAKER) (test 8 U/L 6-55 Specimen slightly dyxa=711) hemolyzed EGFR (BEAKER) (test 40 mL/min/1.73 sq m ESTIMATED GFR IS NOT soyc=0542) ACCURATE CREATININE CLEARANCE IN PREDICTING GLOMERULAR FILTRATION RATE. ESTIMATED GFR IS NOT APPLICABLE FOR DIALYSIS PATIENTS. CBC W/PLT COUNT & AUTO [id number] 05:06:00 Test Item Value Reference Range Comments WHITE BLOOD CELL COUNT (BEAKER) (test fltq=429) 7.3 K/ L 4.0-10.0 RED BLOOD CELL COUNT (BEAKER) (test kore=114) 3.27 M/ L 4.00-5.00 HEMOGLOBIN (BEAKER) (test dvnt=444) 9.0 GM/DL 12.0-15.0 HEMATOCRIT (BEAKER) (test coly=324) 28.4 % 36.0-45.0 MEAN CORPUSCULAR VOLUME (BEAKER) (test wpsf=916) 86.9 fL 82.0-99.0 MEAN CORPUSCULAR HEMOGLOBIN (BEAKER) (test 27.5 pg 27.0-33.0 vzxg=756) MEAN CORPUSCULAR HEMOGLOBIN CONC (BEAKER) (test 31.7 GM/DL 32.0-36.0 wrvi=070) RED CELL DISTRIBUTION WIDTH (BEAKER) (test 15.4 % 10.3-14.2 dypk=109) PLATELET COUNT (BEAKER) (test xuox=193) 378 K/CU MM 150-430 MEAN PLATELET VOLUME (BEAKER) (test zuxe=915) 7.5 fL 6.5-10.5 NUCLEATED RED BLOOD CELLS (BEAKER) (test 0 /100 WBC 0-0 dqmn=323) NEUTROPHILS RELATIVE PERCENT (BEAKER) (test 59 % vqzv=415) LYMPHOCYTES RELATIVE PERCENT (BEAKER) (test 29 % cadn=948) MONOCYTES RELATIVE PERCENT (BEAKER) (test 6 % vien=679) EOSINOPHILS RELATIVE PERCENT (BEAKER) (test 6 % mweq=362) BASOPHILS RELATIVE PERCENT (BEAKER) (test 1 % skkd=904) NEUTROPHILS ABSOLUTE COUNT (BEAKER) (test 4.28 K/ L 1.80-8.00 qxmg=979) LYMPHOCYTES ABSOLUTE COUNT (BEAKER) (test 2.08 K/ L 1.48-4.50 tyfh=470) MONOCYTES ABSOLUTE COUNT (BEAKER) (test 0.43 K/ L 0.00-1.30 htue=366) EOSINOPHILS ABSOLUTE COUNT (BEAKER) (test 0.44 K/ L 0.00-0.50 hyxm=303) BASOPHILS ABSOLUTE COUNT (BEAKER) (test 0.07 K/ L 0.00-0.20 qhnt=273) IRON, TIBC, % SAT. (WITHOUT FERRITIN)2016-07-19 00:55:00 Test Item Value Reference Range Comments IRON (BEAKER) (test glps=793) 113 ug/dL 40-160 TOTAL IRON BINDING CAPACITY (BEAKER) (test 241 ug/dL 250-450 ngmm=616) IRON % SATURATION (2) (BEAKER) (test blzv=3499) 47 % 20-55 CREATINE KINASE (CK), TOTAL AND [id number] 00:42:00 Test Item Value Reference Range Comments CREATINE KINASE TOTAL (BEAKER) (test eakv=543) 56 U/L 29-200 CREATINE KINASE-MB (BEAKER) (test clqt=953) 1.3 ng/mL 0.0-6.6 CREATINE KINASE-MB INDEX (BEAKER) (test dlnk=096) 2.3 % Effective 01/08/2014: CK-MB Reference Range ChangeNew: 0.0-6.6 Previous: 0.0- 4.9CK-MB Reference Range:<6.7 Normal6.7-10.0 Borderline>10.0 AbnormalTROPONIN [id number] 00:42:00 Test Item Value Reference Range Comments TROPONIN I (BEAKER) (test moqg=108) 0.11 ng/mL 0.00-0.03 Effective 01/08/2014: Reference Range [...] acute neurological disease, and persistent tachyarrhythmia.HEMOGLOBIN AND [id number] 00:26:00 Test Item Value Reference Range Comments HEMOGLOBIN (BEAKER) (test wusp=749) 9.3 GM/DL 12.0-15.0 HEMATOCRIT (BEAKER) (test kkrh=988) 28.4 % 36.0-45.0 RETICULOCYTE [id number] 00:22:00 Test Item Value Reference Range Comments RETICULOCYTE COUNT PCT (BEAKER) (test rkol=862) 2.1 % 0.4-2.9 [id number] 21:52:00 Test Item Value Reference Range Comments FERRITIN (BEAKER) (test vxbj=265) 99 ng/mL 5-275 Effective 01/08/2014: Reference Range ChangeNew: Male 5-275 Previous: Male 22-322 Female 5-275 Female 10-291VITAMIN B12 AND [id number] 21:52:00 Test Item Value Reference Range Comments VITAMIN B12 (BEAKER) (test bedl=301) 346 pg/mL 213-816 FOLATE (BEAKER) (test kvcx=533) 9.8 ng/mL >=7.0 Effective 01/08/2014: Folate Reference Range ChangeNew: >=7.0 Previous: & gt;=5.4POCT-GLUCOSE [id number] 21:26:00 Test Item Value Reference Range Comments POC-GLUCOSE METER (BEAKER) 101 mg/dL 70-110 TESTED AT [facility] [address] (test velt=7808) [place] [address] CREATINE KINASE (CK), TOTAL AND [id number] 21:22:00 Test Item Value Reference Range Comments CREATINE KINASE TOTAL (BEAKER) (test bqvp=219) 54 U/L 29-200 CREATINE KINASE-MB (BEAKER) (test rdft=777) 1.3 ng/mL 0.0-6.6 CREATINE KINASE-MB INDEX (BEAKER) (test dkte=924) 2.4 % Effective 01/08/2014: CK-MB Reference Range ChangeNew: 0.0-6.6 Previous: 0.0- 4.9CK-MB Reference Range:<6.7 Normal6.7-10.0 Borderline>10.0 AbnormalTROPONIN [id number] 21:22:00 Test Item Value Reference Range Comments TROPONIN I (BEAKER) (test bbbk=647) 0.10 ng/mL 0.00-0.03 Effective 01/08/2014: Reference Range [...]
[2018-07-18 12:23] LABS: Absolute Lymphocytes (CBC) 1.8 K/uL (0.7-4.9); Absolute Monocytes 0.5 K/uL (0.1-1.3); Absolute Neutrophil 10.6 K/uL (1.8-8.0); Eosinophils % 4.1 % (0-4.4); Hematocrit 29.8 % (36.0-45.0); MPV 8.6 fL (7.6-11.3); Monocytes % 3.8 % (3.3-12.3); RBC Red Blood Cell Count 3.27 M/uL (3.86-4.86)
[2018-07-18] MEDS ORDERED: NA CHLORIDE 0.9% 1,000 ML ONE (12:33)
[2018-07-18] MEDS ORDERED: FENTANYL CITR 100 MCG/2 ML ONE (12:33)
[2018-07-18] MEDS ORDERED: CEFTRIAXONE/SWI 1gm 1 GM/10 ML SYR ONE (12:33)
[2018-07-18] MEDS ORDERED: ONDANSETRON 4 MG/2 ML VIAL ONE (12:33)
[2018-07-18 12:49] LABS: Protime INR 1.27
[2018-07-18 12:52] LABS: Urine Blood 1+ (NEG); Urine Glucose NEGATIVE (NEG); Urine Protein 2+ (NEG); Urine Specific Gravity 1.015 (1.005-1.030); Urine pH 8.5 (5.0-7.0)
[2018-07-18 12:56] LABS: Albumin 2.5 g/dL (3.4-5.0); Bilirubin Direct 0.2 mg/dL (0-0.2); Bilirubin Total 0.5 mg/dL (0.2-1.0); Magnesium 2.6 mg/dL (1.8-2.4); Potassium 4.5 mmol/L (3.5-5.1); Troponin (Emerg Dept Use Only) 0.17 ng/mL (0.0-0.045)
--- NOTE | 2018-07-18 13:16 | RAD REPORT ---
EXAM DESCRIPTION: CT - Head C Spine Cap Wo Con - 07/18/2018 12:54 pm CLINICAL HISTORY: Transient alteration of awareness, fall, head, neck, chest and abdomen pain COMPARISON: CT study September 2013. TECHNIQUE: Axial [address] head images were obtained. Axial [address] cervical spine images were obtain ed with sagittal and coronal reconstruction images reviewed. Axial 5 mm images of the chest, abdomen and pelvis were obtained. All CT scans are performed using dose optimization technique as appropriate and may include automated exposure control or mA/KV adjustment according to patient size. FINDINGS: No intracranial hemorrhage, mass or edema. No midline shift or abnormal fluid collection. Mastoid air cells and paranasal sinuses are clear. No skull fracture. Patient has moderate severity atrophy and chronic ischemic change. Ventricles are in proportion. 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 Dense arterial tree calcifications are present. Cervical bodies are normal in height and alignment. No fracture or acute bone finding.No disk space n arrowing.No prevertebral soft tissue thickening or paraspinal mass.Central canal detail is inherently limited on CT imaging.Posterior endplate spurring and disc bulge changes are present at several midc ervical levels. There is prominent calcification of the transverse ligament and posterior longitudina l ligament along the posterior margin of C2. CT chest shows no pneumothorax, pulmonary contusion or pleural fluid collection. Scattered fibrotic l gerry changes are present. No mediastinal hematoma and the aorta and pulmonary arteries are unremarkabl e. No chest will mass or abnormal axillary finding. No displaced rib fracture. Prominent degenerative changes are present at the bilateral sternoclavicular joints. The liver, spleen and pancreas show no acute findings. Well filled gallbladder is present with no lisa iary tree dilatation. Gallstones can be occult on CT imaging. No hydronephrosis. Vascular calcifications are present. In the posterior mid right kidney a 2.6 centi meter rounded homogeneous masses present slightly hyperdense to the adjacent renal parenchyma. No vincent cification or fat component. No other mass of either kidney. The left renal mass may be a high protei n content cyst. In 2014 and slightly smaller mass was present at this location without obvious enhanc ement. No bowel injury or significant finding. No free air, free fluid or abnormal stranding. No hernia, mas s or bulky lymphadenopathy. No urinary bladder abnormality. Uterine fibroid is evident. Ovarian calc ifications are present. [employer] findings are similar to comparison. Disc and bony degenerative changes are present. No acute bone finding. Vascular calcifications are pr esent. IMPRESSION: Atrophy, chronic ischemic change and old infarction changes are present. No acute CT Hea d finding. Cervical spine degenerative changes are present without fracture or acute finding. Central canal deta il is inherently limited. CT chest imaging shows no trauma injury. No suspicious finding noted. No acute or traumatic injuries to the abdomen or pelvis. Gallstones can be occult on CT imaging. A 2.5 centimeter hyperdense left renal mass is present. This has enlarged slightly since 2014. High p rotein content cyst is favored.
--- NOTE | 2018-07-18 13:39 | EDPHYS ---
Physician Documentation [facility] Name: Colleen Mcneil Age: 87 yrs Sex: Female : 1930 Arrival Date: 07/18/2018 Time: 11:08 Bed 6 Private MD: TARUN Physician Morgan Khalil HPI: 07/18 11:31 This 87 yrs old Black Female presents to ER via EMS with complaints of ams, fall and demario weakness. 11:31 The patient or guardian reports decreased range of motion, an injury, pain. that demario occurred at home, sustained from a fall, There is no obvious deformity. The complaints affect the left hip. Onset: The symptoms/episode began/occurred 3 day(s) ago. Modifying factors: The symptoms are alleviated by nothing, the symptoms are aggravated by nothing. The patient presents with decreased range of motion. The complaints affect the left hip, lateral aspect of left thigh, left gluteal fold, left hamstring, left inner thigh, medial aspect of left thigh, left upper thigh and left quadriceps. Context: The problem was sustained. Associated signs and symptoms: The patient has no apparent associated signs or symptoms. Historical: - Allergies: 11:20 No Known Allergies; ph - Home Meds: 11:20 allopurinol 100 mg oral tab once daily [Active]; amlodipine 5 mg tab 1 tab once daily ph [Active]; ProAir HFA 90 mcg/actuation inhalation HFAA twice a day [Active]; furosemide 40 mg oral tab 2 times per day [Active]; Tylenol Arthritis Pain 650 mg oral TbER 2 tabs twice a day [Active]; Lantus 100 unit/mL Sub-Q soln 10 unit twice a day [Active]; pravastatin 40 mg Oral tab 1 tab once daily [Active]; - PMHx: 11:20 Asthma; Diabetes - IDDM; Hypertension; ph - Immunization history:: Adult Immunizations unknown. - Social history:: Smoking status: unknown. - Ebola Screening: : No symptoms or risks identified at this time. - Family history:: not pertinent. ROS: 11:31 Constitutional: Negative for fever, chills, and weight loss, Eyes: Negative for injury, demario pain, redness, and discharge, ENT: Negative for injury, pain, and discharge, Neck: Negative for injury, pain, and swelling, Cardiovascular: Negative for chest pain, palpitations, and edema, Respiratory: Negative for shortness of breath, cough, wheezing, and pleuritic chest pain, Abdomen/GI: Negative for abdominal pain, nausea, vomiting, diarrhea, and constipation, Back: Negative for injury and pain, : Negative for injury, bleeding, discharge, and swelling, MS/Extremity: Negative for injury and deformity, Skin: Negative for injury, rash, and discoloration, Neuro: Negative for headache, weakness, numbness, tingling, and seizure, Psych: Negative for depression, anxiety, suicide ideation, homicidal ideation, and hallucinations, Allergy/Immunology: Negative for hives, rash, and allergies, Endocrine: Negative for neck swelling, polydipsia, polyuria, polyphagia, and marked weight changes. 11:31 MS/extremity: Positive for decreased range of motion, pain, tenderness, of the pelvis and left leg. Exam: 11:31 Constitutional: This is a well developed, well nourished patient who is awake, alert, demario and in no acute distress. Head/Face: Normocephalic, atraumatic. Eyes: Pupils equal round and reactive to light, extra-ocular motions intact. Lids and lashes normal. Conjunctiva and sclera are non-icteric and not injected. Cornea within normal limits. Periorbital areas with no swelling, redness, or edema. ENT: Nares patent. No nasal discharge, no septal abnormalities noted. Tympanic membranes are normal and external auditory canals are clear. Oropharynx with no redness, swelling, or masses, exudates, or evidence of obstruction, uvula midline. Mucous membranes moist. Neck: Trachea midline, no thyromegaly or masses palpated, and no cervical lymphadenopathy. Supple, full range of motion without nuchal rigidity, or vertebral point tenderness. No Meningismus. Chest/axilla: Normal chest wall appearance and motion. Nontender with no deformity. No lesions are appreciated. Cardiovascular: Regular rate and rhythm with a normal S1 and S2. No gallops, murmurs, or rubs. Normal PMI, no JVD. No pulse deficits. Respiratory: Lungs have equal breath sounds bilaterally, clear to auscultation and percussion. No rales, rhonchi or wheezes noted. No increased work of breathing, no retractions or nasal flaring. Abdomen/GI: Soft, non-tender, with normal bowel sounds. No distension or tympany. No guarding or rebound. No evidence of tenderness throughout. Back: No spinal tenderness. No costovertebral tenderness. Full range of motion. Skin: Warm, dry with normal turgor. Normal color with no rashes, no lesions, and no evidence of cellulitis. Neuro: Awake and alert, GCS 15, oriented to person, place, time, and situation. Cranial nerves II-XII grossly intact. Motor strength 5/5 in all extremities. Sensory grossly intact. Cerebellar exam normal. Normal gait. Psych: Awake, alert, with orientation to person, place and time. Behavior, mood, and affect are within normal limits. 11:31 Musculoskeletal/extremity: Extremities: grossly normal except: noted in the pelvis and left leg: decreased ROM, pain, ROM: full active range of motion, in the left hip, left gluteal fold, left inner thigh and left upper thigh. Vital Signs: 11:12 BP 180 / 99; Pulse 98; Resp 20; Temp 97.4(O); Pulse Ox 100% on R/A; Weight 81.65 kg; ph 12:00 BP 130 / 49; Pulse 98; Resp 20; Pulse Ox 99% on R/A; ph 13:00 ph 13:43 BP 131 / 72; Pulse 91; Resp 18; Pulse Ox 100% on R/A; ph 15:00 BP 148 / 78; Pulse 94; Resp 20; Pulse Ox 100% on R/A; ph 16:00 BP 157 / 86; Pulse 96; Resp 18; Pulse Ox 99% on R/A; ph 17:00 BP 137 / 80; Pulse 91; Resp 20; Pulse Ox 100% on R/A; ph 18:15 BP 133 / 78; Pulse 95; Resp 18; Temp 97.8; Pulse Ox 100% on R/A; ph 13:00 pt in radilogy ph MDM: 11:08 Patient medically screened. [facility] 11:31 Data reviewed: vital signs, nurses notes. Data interpreted: conveyor monitor: not demario applicable for this patient encounter. 07/18 11:30 Order name: Basic Metabolic Panel; Complete Time: 13:00 [facility] 07/18 11:30 Order name: CBC with Diff; Complete Time: 13:00 [facility] 07/18 11:30 Order name: LFT's; Complete Time: 13:00 [facility] 07/18 11:30 Order name: Magnesium; Complete Time: 13:00 [facility] 07/18 11:30 Order name: NT PRO-BNP; Complete Time: 13:00 [facility] 07/18 11:30 Order name: PT-INR; Complete Time: 13:00 [facility] 07/18 11:30 Order name: Troponin (emerg Dept Use Only); Complete Time: 13:00 [facility] 07/18 11:30 Order name: Lipase; Complete Time: 13:00 [facility] 07/18 11:30 Order name: Urine Culture [facility] 07/18 11:31 Order name: Procalcitonin; Complete Time: 13:18 [facility] 07/18 11:31 Order name: Blood Culture Adult (2) [facility] 07/18 12:29 Order name: Urine Dipstick--Ancillary (enter results); Complete Time: 13:00 07/18 17:46 Order name: T4 Free [facility] 07/18 17:46 Order name: Thyroid Stimulating Hormone [facility] 07/18 11:30 Order name: XRAY Chest (1 view) [facility] 07/18 11:30 Order name: EKG; Complete Time: 11:33 [facility] 07/18 11:30 Order name: Cardiac monitoring; Complete Time: 12:13 [facility] 07/18 11:30 Order name: EKG - Nurse/Tech; Complete Time: 18:48 [facility] 07/18 11:30 Order name: IV Saline Lock; Complete Time: 12:13 [facility] 07/18 11:30 Order name: Labs collected and sent; Complete Time: 12:13 [facility] 07/18 11:30 Order name: O2 Per Protocol; Complete Time: 12:14 [facility] 07/18 11:30 Order name: Pelvis XRAY [facility] 07/18 11:30 Order name: Femur Left XRAY [facility] 07/18 11:30 Order name: CT Traumagram (Head C Spine CAP wo con) [facility] 07/18 18:34 Order name: US [facility] 07/18 11:30 Order name: O2 Sat Monitoring; Complete Time: 12:14 [facility] 07/18 11:30 Order name: Urine Dipstick-Ancillary (obtain specimen); Complete Time: 11:55 [facility] 07/18 13:18 Order name: Barrett: renal failure; Complete Time: 13:59 [facility] Administered Medications: 12:40 Drug: Zofran 4 mg Route: IVP; Site: left hand; ph 13:00 Follow up: Response: No adverse reaction ph 12:40 Drug: NS 0.9% 1000 ml Route: IV; Rate: 125 ml/hr; Site: left hand; ph 18:51 Follow up: Response: No adverse reaction; IV Status: Infusion continued upon admission ph 12:42 Drug: fentaNYL (PF) 25 mcg Route: IVP; Site: left hand; ph 13:30 Follow up: Response: No adverse reaction; Pain is decreased ph 12:43 Drug: Rocephin - (cefTRIAXone) 1 grams Route: IVPB; Infused Over: 30 mins; Site: left ph hand; 13:30 Follow up: Response: No adverse reaction; IV Status: Completed infusion ph 15:10 Drug: fentaNYL (PF) 25 mcg Route: IVP; Site: left hand; ph 15:45 Follow up: Response: No adverse reaction; Pain is decreased ph Disposition: 07/18/18 13:38 Hospitalization ordered by Bismark Vang for Inpatient Admission. Preliminary diagnosis are Fall due to bumping against object, Urinary tract infection, site not specified, Anemia, unspecified, Type 1 diabetes mellitus, Acute kidney failure. - Bed requested for Telemetry/MedSurg (Inpatient). - Status is Inpatient Admission. ph - Condition is Fair. - Problem is new. - Symptoms have improved. UTI on Admission? Yes Signatures: Dispatcher [employer] Francheska Leon RN RN dw Anderson, Corey, MD MD cha Hall, Patricia, RN RN ph Corrections: (The following items were deleted from the chart) 17:58 13:38 Hospitalization Ordered by Bismark Vang DO for Inpatient Admission. Preliminary diagnosis is Fall due to bumping against object; Urinary tract infection, site not specified; Anemia, unspecified; Type 1 diabetes mellitus; Acute kidney failure. Bed requested for Telemetry/MedSurg (Inpatient). Status is Inpatient Admission. Condition is Fair. Problem is new. Symptoms have improved. UTI on Admission? Yes. demario 18:41 17:58 07/18/2018 13:38 Hospitalization Ordered by Bismark Vang DO for Inpatient ph Admission. Preliminary diagnosis is Fall due to bumping against object; Urinary tract infection, site not specified; Anemia, unspecified; Type 1 diabetes mellitus; Acute kidney failure. Bed requested for Telemetry/MedSurg (Inpatient). Status is Inpatient Admission. Condition is Fair. Problem is new. Symptoms have improved. UTI on Admission? Yes. dw
--- NOTE | 2018-07-18 13:39 | ER ---
Nurse's Notes [facility] Name: Colleen Mcneil Age: 87 yrs Sex: Female : 1930 Arrival Date: 07/18/2018 Time: 11:08 Bed 6 Private MD: Diagnosis: Fall due to bumping against object;Urinary tract infection, site not specified;Anemia, unspecified;Type 1 diabetes mellitus;Acute kidney failure Presentation: 07/18 11:08 Presenting complaint: EMS states: Reports UTI, seen in ED last week and placed on ph antibiotics but they are not working, pt w/ AMS, oriented to person only, BGL 155, temp 97.4. Transition of care: patient was not received from another setting of care. Onset of symptoms was July 18, 2018. Risk Assessment: Do you want to hurt yourself or someone else? Patient reports no desire to harm self or others. Initial Sepsis Screen: Does the patient meet any 2 criteria? Altered Mental Status. No. Patient's initial sepsis screen is negative. Does the patient have a suspected source of infection? Yes: Dysuria/Frequency/Urgency/UTI. Care prior to arrival: None. 11:08 Method Of Arrival: EMS: [facility] 11:08 Acuity: PRABHU 2 ph Historical: - Allergies: 11:20 No Known Allergies; ph - Home Meds: 11:20 allopurinol 100 mg oral tab once daily [Active]; amlodipine 5 mg tab 1 tab once daily ph [Active]; ProAir HFA 90 mcg/actuation inhalation HFAA twice a day [Active]; furosemide 40 mg oral tab 2 times per day [Active]; Tylenol Arthritis Pain 650 mg oral TbER 2 tabs twice a day [Active]; Lantus 100 unit/mL Sub-Q soln 10 unit twice a day [Active]; pravastatin 40 mg Oral tab 1 tab once daily [Active]; - PMHx: 11:20 Asthma; Diabetes - IDDM; Hypertension; ph - Immunization history:: Adult Immunizations unknown. - Social history:: Smoking status: unknown. - Ebola Screening: : No symptoms or risks identified at this time. - Family history:: not pertinent. Screenin:21 Abuse screen: Denies threats or abuse. Denies injuries from another. Nutritional ph screening: No deficits noted. Tuberculosis screening: No symptoms or risk factors identified. Fall Risk Fall in past 12 months (25 points). No secondary diagnosis (0 pts). Assessment: 11:30 General: Appears in no apparent distress. uncomfortable, obese, well groomed, Behavior ph is cooperative, anxious, fussy. Pain: Complains of pain in left buttocks and left hip. Neuro: Level of Consciousness is awake, alert, obeys commands, Oriented to person. Cardiovascular: Denies chest pain, nausea, shortness of breath, vomiting, Capillary refill < 3 seconds in bilateral fingers Patient's skin is warm and dry. Respiratory: Airway is patent Respiratory effort is even, unlabored, Respiratory pattern is regular, symmetrical. GI: Patient currently denies abdominal pain, diarrhea, nausea, vomiting. : Denies burning with urination, Parent/caregiver report the patient having recent UTI. Derm: Skin is fragile, is thin, Skin is pink, warm \T\ dry. Wound noted left buttocks. Musculoskeletal: Circulation, motion, and sensation intact. Range of motion: intact in all extremities. 11:57 Reassessment: small amount of vaginal bleeding noted when performing straight cath. ss Family member dies any knowledge of previous bleeding, and though patient has confusion states that she has not noticed any vaginal bleeding either. Dr. Khalil notified. 13:00 Reassessment: Pt in radiology. ph 13:41 Reassessment: Patient appears in no apparent distress at this time. Patient and/or ph family updated on plan of care and expected duration. Pain level reassessed. Pt returned from radiology, resting quietly, A\T\O to person and place, VSS, daughter at bedside, awaiting radiology results. 14:03 Reassessment: Patient appears in no apparent distress at this time. Patient and/or ph family updated on plan of care and expected duration. Pain level reassessed. Dr Vang at bedside. 15:00 Reassessment: Patient appears in no apparent distress at this time. Patient and/or ph family updated on plan of care and expected duration. Pain level reassessed. Pt awake and alert, oriented to person and place, c/o pain to L hip and buttocks, pt repositioned onto R side and ERP notified of pain. 16:00 Reassessment: Patient appears in no apparent distress at this time. Patient and/or ph family updated on plan of care and expected duration. Pain level reassessed. Pt resting quietly, daughter at bedside, awaiting room assignment. 17:00 Reassessment: Patient appears in no apparent distress at this time. No changes from previously documented assessment. Patient and/or family updated on plan of care and expected duration. Pain level reassessed. 18:35 Reassessment: Patient appears in no apparent distress at this time. Patient and/or ph family updated on plan of care and expected duration. Pain level reassessed. PT resting quietly, report called to Joanne Ahn RN on , pt taken to floor by ekg/ecg technician. Vital Signs: 11:12 BP 180 / 99; Pulse 98; Resp 20; Temp 97.4(O); Pulse Ox 100% on R/A; Weight 81.65 kg; ph 12:00 BP 130 / 49; Pulse 98; Resp 20; Pulse Ox 99% on R/A; ph 13:00 ph 13:43 BP 131 / 72; Pulse 91; Resp 18; Pulse Ox 100% on R/A; ph 15:00 BP 148 / 78; Pulse 94; Resp 20; Pulse Ox 100% on R/A; ph 16:00 BP 157 / 86; Pulse 96; Resp 18; Pulse Ox 99% on R/A; ph 17:00 BP 137 / 80; Pulse 91; Resp 20; Pulse Ox 100% on R/A; ph 18:15 BP 133 / 78; Pulse 95; Resp 18; Temp 97.8; Pulse Ox 100% on R/A; ph 13:00 pt in radilogy ED Course: 11:08 Patient arrived in ED. tw2 11:08 Morgan Khalil MD is Attending Physician. demario 11:08 Ольга Butt, BUDDY is Primary Nurse. ph 11:12 Triage completed. ph 11:21 Arm band placed on Patient placed in an exam room, on a stretcher. ph 11:35 EKG done, by forestry technician. reviewed by Morgan Khalil MD. tc 11:55 Urine collected: straight cath specimen, cloudy, Amount Returned: 400mL. Straight cath ss inserted, using sterile technique, 16 Fr. Specimen obtained. Returned cloudy urine. Patient tolerated well. 12:00 Door closed. Noise minimized. Warm blanket given. Pillow given. Head of bed elevated. ph Turned to right side. 12:05 Inserted saline lock: 22 gauge in left hand, using aseptic technique. Missed ph attempt(s): 22 gauge in left forearm. Bleeding controlled, band aid applied, catheter tip intact. 12:58 CT Traumagram (Head C Spine CAP wo con) In Process Unspecified. EDMS 13:23 XRAY Chest (1 view) In Process Unspecified. EDMS 13:23 Pelvis XRAY In Process Unspecified. EDMS 13:23 Femur Left XRAY In Process Unspecified. EDMS 13:27 Bismark Vang DO is Hospitalizing Provider. demario 13:34 Patient has correct armband on for positive identification. Bed in low position. Call ph light in reach. Side rails up X2. senior shipping clerk on. Pulse ox on. NIBP on. 14:02 No provider procedures requiring assistance completed. Barrett cath inserted, using ph sterile technique, 16 Fr., by mt, balloon inflated, to gravity drainage. Patient admitted, IV remains in place. 17:19 Ultrasound completed. Patient tolerated well. lc3 Administered Medications: 12:40 Drug: Zofran 4 mg Route: IVP; Site: left hand; ph 13:00 Follow up: Response: No adverse reaction ph 12:40 Drug: NS 0.9% 1000 ml Route: IV; Rate: 125 ml/hr; Site: left hand; ph 18:51 Follow up: Response: No adverse reaction; IV Status: Infusion continued upon admission ph 12:42 Drug: fentaNYL (PF) 25 mcg Route: IVP; Site: left hand; ph 13:30 Follow up: Response: No adverse reaction; Pain is decreased ph 12:43 Drug: Rocephin - (cefTRIAXone) 1 grams Route: IVPB; Infused Over: 30 mins; Site: left ph hand; 13:30 Follow up: Response: No adverse reaction; IV Status: Completed infusion ph 15:10 Drug: fentaNYL (PF) 25 mcg Route: IVP; Site: left hand; ph 15:45 Follow up: Response: No adverse reaction; Pain is decreased ph Output: 11:56 Urine: 400ml (Straight Cath); Total: 400ml. ss Outcome: 13:38 Decision to Hospitalize by Provider. demario 18:40 Admitted to Tele accompanied by tech, via stretcher, room 201, with chart, Report ph called to Joanne Ahn 18:40 Condition: stable 18:40 Instructed on the need for admit. 18:41 Patient left the ED. ph Signatures: Dispatcher [employer] EDMorgan Short MD MD cha Smirch, Shelby RN RN Nita Lee, research lab assistant EKG [facility] Ольга Butt RN RN Olive Abdi Tara RN RN tw2 Corrections: (The following items were deleted from the chart) 14:03 13:41 Reassessment: Patient appears in no apparent distress at this time. Patient ph and/or family updated on plan of care and expected duration. Pain level reassessed. Patient is alert, oriented x 3, equal unlabored respirations, skin warm/dry/pink. Pt returned from radiology, resting quietly, A\T\O to person and place, VSS, daughter at bedside, awaiting radiology results ph
--- NOTE | 2018-07-18 13:40 | RAD REPORT ---
EXAM DESCRIPTION: RAD - Chest Single View - 07/18/2018 1:31 pm CLINICAL HISTORY: Chest pain COMPARISON: June 2016 TECHNIQUE: AP portable chest image was obtained 1314 hours . FINDINGS: No peripheral mass or consolidation. Interstitial pattern is prominent as a baseline. No a cute failure or volume overload. Heart and vasculature are normal. No measurable pleural effusion and no pneumothorax. No acute bony abnormality seen. No acute aortic findings suspected. IMPRESSION: Mild chronic interstitial lung disease. No acute cardiopulmonary finding seen.
--- NOTE | 2018-07-18 13:41 | RAD REPORT ---
EXAM DESCRIPTION: RAD - Femur Left - 07/18/2018 1:31 pm CLINICAL HISTORY: Fall, pelvis and leg pain COMPARISON: None. FINDINGS: No fracture of the left hemipelvis seen. There is no dislocation of the left femoral head. Joint space narrowing is present. Bones are osteopenic overall. No fracture of the proximal femur. N o destructive bone process. Patient has advanced degenerative change at the left knee joint. Joint ef fusion is present at the knee. Arterial tree calcifications are present. No air or foreign body in the soft tissues. IMPRESSION: Osteopenic and degenerative changes the left femur and left hip joint noted. No fracture or acute finding. Very advanced degenerative change at the knee joint with joint effusion.
--- NOTE | 2018-07-18 13:42 | RAD REPORT ---
EXAM DESCRIPTION: RAD - Pelvis - 07/18/2018 1:32 pm CLINICAL HISTORY: Fall, pelvic pain COMPARISON: September 2013 TECHNIQUE: AP imaging of the pelvis was obtained. FINDINGS: Prominent lower lumbar degenerative changes are present only partially imaged. Degenerativ e change has progressed since 2013. SI joint degenerative changes are present. Small calcifications a long the inferior margin of the right SI joint have not changed. No fracture of the bony pelvis identified. No pathologic component seen. Degenerative changes are pre sent in each hip joint without fracture or dislocation. Bilateral femoral head AVN is suspected. IMPRESSION: No fracture of the pelvis or proximal femora. 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
--- NOTE | 2018-07-18 16:00 | P.HP ---
Certification for Inpatient Patient admitted to: Inpatient With expected LOS: >2 Midnights Patient will require the following post-hospital care: Home Health Services Practitioner: I am a practitioner with admitting privileges, knowledge of patient current condition, hospital course, and medical plan of care. Services: Services provided to patient in accordance with Admission requirements found in Title 42 Section 412.3 of the Code of Federal Regulations Patient History Date of Service: 07/18/18 Primary Care Provider: Dr. Weslye Reason for admission: Fall, failed outpatient therapy for UTI History of Present Illness: 87-year-old female presented to the emergency room after a fall. She apparently fell to 7 days ago. Since that time patient has been weak. During the course of that time she was seen for UTI in the emergency room. She was discharged home with Macrodantin. Her condition has not improved. Increase fatigue, shortness of breath noted. She has reported some chills at home. No fever noted. She still reports dysuria. Patient came to the ER for further evaluation. In the ER patient evaluated. Vital signs stable. White count elevated at 13.6 , hemoglobin 9.2. Urinalysis positive for UTI. Pro calcitonin 8.16. Sodium 147, potassium 4.5, BUN of 96, creatinine 3.93. GFR of 13. BNP 4555. Troponin 0.17. CT head unremarkable. CT trauma negative. Chest x-ray negative. Patient was admitted for further treatment of her UTI, failed outpatient therapy and acute on chronic renal failure likely with dehydration. When I saw the patient ER, she appeared improved. Patient able to follow commands appropriately. Allergies No Known Allergies Allergy (Verified 04/26/16 02:57) Home medications list reviewed: Yes Home Medications: Albuterol Sulfate [Proair Respiclick] 90 mcg IH DAILY 04/18/16 Insulin Glargine Human [Lantus*] 10 unit SQ DAILY 04/18/16 Pravastatin Sodium 40 mg PO DAILY 04/18/16 Aspirin [Jose Chewable Aspirin] 81 mg PO DAILY 04/26/16 Sodium Bicarbonate 650 mg PO BID 04/26/16 Allopurinol 100 mg PO DAILY #30 tablet 05/01/16 Amlodipine [Norvasc*] 5 mg PO DAILY #30 tab 05/01/16 Ciprofloxacin HCl [Cipro 250 MG Tablet*] 250 mg PO BID #14 tab 05/01/16 Colchicine [Colcrys *] 0.6 mg PO BID #10 tab 05/01/16 Doxazosin [Cardura*] 2 mg PO BID #60 tab 05/01/16 - Past Medical/Surgical History Diabetic: Yes -: HTN -: Hyperlipidemia -: Diabetes mellitus type 2, insulin-dependent -: Chronic renal disease, stage III -: Asthma Past Surgical History: Patient denies surgical history Psychosocial/ Personal History: Patient lives with daughter. She is a . She has 7 children - Family History Family History: Reviewed- Non-Contributory - Social History Smoking Status: Never smoker Alcohol use: No CD- Drugs: No Caffeine use: Yes Place of Residence: Home Review of Systems General: Chills, Weakness, As per HPI Eyes: Unremarkable ENT: Unremarkable Respiratory: Unremarkable Cardiovascular: Unremarkable Gastrointestinal: Unremarkable Genitourinary: Dysuria, As per HPI Musculoskeletal: As per HPI Integumentary: Unremarkable Neurological: As per HPI Lymphatics: Unremarkable Physical Examination - Physical Exam General: Alert, In no apparent distress, Oriented x3, Cooperative HEENT: Atraumatic, Normocephalic, PERRLA, Other (Dry mucous membranes) Neck: Supple, No Thyromegaly Respiratory: Clear to auscultation bilaterally, Normal air movement Cardiovascular: Normal pulses, Regular rate/rhythm Gastrointestinal: Normal bowel sounds, Soft and benign, Non-distended, No tenderness, No masses, No rebound, No guarding Musculoskeletal: No erythema, No tenderness, No warmth Integumentary: No tenderness/swelling, No erythema, No warmth, No cyanosis Neurological: Normal speech, Normal strength at 5/5 x4 extr, Normal tone, Normal affect - Studies Laboratory Data (last 24 hrs) 07/18/18 12:05: PT 14.9 H, INR 1.27 07/18/18 12:05: WBC 13.6 H, Hgb 9.2 L, Hct 29.8 L, Plt Count 574 H 07/18/18 12:05: Sodium 147 H, Potassium 4.5, BUN 96 H, Creatinine 3.93 H, Glucose 126 H, Magnesium 2.6 H, Total Bilirubin 0.5, AST 47 H, ALT 31, Alkaline Phosphatase 109, Lipase 148 Assessment and Plan - Plan Impression: UTI, failed outpatient therapy, complicated with acute on chronic renal failure stage 4 Hypertension Diabetes mellitus type 2 Hyperlipidemia Recent fall with 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 Previous cultures reviewed. Will start Rocephin. Urine and blood cultures obtained. Will monitor closely. Will also start IV fluids. Renal function. Nephrology consulted to further evaluate. Will check renal ultrasound. Await further recommendations from nephrology. Elevated troponin: Likely underlying CAD. No cardiac complaints at this time. Will check echocardiogram. Will consult cardiology for further recommendation. Likely no need for intervention during his hospitalization. Hypertension: Continue with home medication. Will monitor and adjust appropriately. Diabetes mellitus type 2: Will continue with Accu-Cheks and sliding scale. Hyperlipidemia: Restart home medication. 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 Will have physical therapy and occupational therapy evaluate patient. Patient desires to go home with home health and physical therapy at discharge. Asthma: Will provide medication as needed Anemia of chronic disease: Will evaluate for iron and B12 deficiency. Patient may require supplementation. Will monitor hemoglobin. Discharge Plan: Home Plan to discharge in: Greater than 2 days - Advance Directives Does patient have a Living Will: No Does patient have a Durable POA for Healthcare: No - Code Status/Comfort Care Code Status Assessed: Yes (Patient is full code.) Time Spent Managing Pts Care (In Minutes): 55
[2018-07-18] MEDS ORDERED: ACETAMINOPHEN 500 MG TAB PO PRN (16:51)
[2018-07-18] MEDS: INSULIN -REGULAR HUMAN 50 UNIT/0.5 ML ML SQ SCH ×2 (16:51→20:35)
[2018-07-18] MEDS ORDERED: LIDOCAINE 5% PATCH TOP PRN (16:51)
[2018-07-18] MEDS ORDERED: NACHLORIDE 0.45% 1,000 ML IV SCH (16:51)
[2018-07-18] MEDS ORDERED: D50W 25 GM/50 ML SYRINGE IV PRN (16:58)
[2018-07-18] MEDS ORDERED: GLUCAGON 1 MG/VIAL IM PRN (16:58)
[2018-07-18] MEDS ORDERED: CEFTRIAXONE/SWI 1gm 1 GM/10 ML SYR IVP SCH (17:00)
[2018-07-18 17:44] LABS: Thyroid Stimulating Hormone 3.2 uIU/mL (0.360-3.740)
--- NOTE | 2018-07-18 18:33 | RAD REPORT ---
EXAM DESCRIPTION: US - Renal Ultrasound-Complete - 07/18/2018 6:19 pm CLINICAL HISTORY: Acute on chronic renal disease COMPARISON: Renal Ultrasound-Complete dated 04/27/2016 FINDINGS: Both kidneys are somewhat small in size. Echogenicity is within normal range. The right kidney measures 8.7 x 4.8 x 3.7 cm. No hydronephrosis, focal mass or perinephric fluid. The left kidney measures 7.5 x 4.5 x 3.6 cm. No hydronephrosis, focal mass or perinephric fluid. Tal gn 2 cm cyst is present. The urinary bladder is incompletely distended without gross abnormality seen. IMPRESSION: Benign 2 cm left renal cyst. Mildly atrophic kidneys.
[2018-07-18 19:19] VITALS: BMI 32.3
[2018-07-18 19:38] LABS: Troponin I 0.19 ng/mL (0.0-0.045)
[2018-07-18] MEDS: ENOXAPARIN 30 MG/0.3 ML SQ SCH (20:09)
[2018-07-18] MEDS: ATORVASTATIN 10 MG TAB PO SCH (20:10)
[2018-07-18] MEDS: TRAMADOL HCL 50 MG TAB PO PRN (20:10)
[2018-07-19] MEDS: HYDROCODONE/APAP 5/325 MG TAB PO PRN ×3 (00:49→16:02)
[2018-07-19 03:36] LABS: CKMB Creatine Kinase MB 8.3 ng/mL (0.3-3.6); Troponin I 0.26 ng/mL (0.0-0.045)
[2018-07-19] MEDS: TRAMADOL HCL 50 MG TAB PO PRN ×2 (05:35→19:47)
[2018-07-19 05:46] LABS: Absolute Monocytes 0.5 K/uL (0.1-1.3); Absolute Neutrophil 8.6 K/uL (1.8-8.0); Basophils % 0.7 % (0-1.3); Eosinophils % 3.6 % (0-4.4); Hematocrit 33.8 % (36.0-45.0); Lymphocytes % 17.2 % (15.3-44.8); MPV 8.2 fL (7.6-11.3); RBC Red Blood Cell Count 3.71 M/uL (3.86-4.86)
[2018-07-19 06:00] LABS: Albumin 2.4 g/dL (3.4-5.0); Magnesium 2.5 mg/dL (1.8-2.4); Potassium 4.3 mmol/L (3.5-5.1)
[2018-07-19] MEDS: INSULIN -REGULAR HUMAN 50 UNIT/0.5 ML ML SQ SCH ×4 (07:30→21:00)
--- NOTE | 2018-07-19 07:32 | EKG ---
Test Date: 2018-07-18 Test Time: 11:35:29 Wedding Planning Internship: JOSE J MEASUREMENT RESULTS: Intervals: Rate: 97 IL: 208 QRSD: 110 QT: 398 QTc: 505 [place]: P: 58 IL: 208 QRS: -25 T: 137 INTERPRETIVE STATEMENTS: Normal sinus rhythm Low voltage QRS Cannot rule out Anteroseptal infarct, age undetermined Abnormal ECG Compared to ECG 07/18/2016 13:49:46 Ventricular premature complex(es) no longer present First degree AV block no longer present Prolonged QT interval no longer present Myocardial infarct finding still present Electronically Signed On 07-19-18 07:31:34 CDT by Jalil Quiroz
[2018-07-19] MEDS: AMLODIPINE 5 MG TAB PO SCH (08:13)
[2018-07-19] MEDS: ALLOPURINOL 100 MG TAB PO SCH (08:13)
[2018-07-19] MEDS: ASPIRIN 81 MG CHEWABLE TABLET PO SCH (08:13)
[2018-07-19] MEDS: ENOXAPARIN 30 MG/0.3 ML SQ SCH (08:14)
[2018-07-19] MEDS: CEFTRIAXONE/SWI 1gm 1 GM/10 ML SYR IVP SCH (08:14)
[2018-07-19] MEDS ORDERED: HOME MED 1 EA UNK (Pravastatin Sodium [Pravastatin Sodium] 40 MG) PO SCH (09:00)
[2018-07-19] MEDS ORDERED: ALLOPURINOL 100 MG TAB PO SCH (09:00)
--- NOTE | 2018-07-19 09:11 | P.PN ---
Subjective Date of Service: 07/19/18 Primary Care Provider: Dr. Wesley Chief Complaint: Fall, failed outpatient therapy for UTI Subjective: Other (Patient stable this time. Patient reports achiness to her bone) Physical Examination - Vital Signs Temperature: 97.7 F Blood Pressure: 116/72 Pulse: 55 Respirations: 18 Pulse Ox (%): 99 - Physical Exam General: Alert, In no apparent distress, Other (Patient was complaining of pain but this was intermittent. When interacting with patient no pain identified) HEENT: Atraumatic Neck: Supple Respiratory: Clear to auscultation bilaterally, Normal air movement Cardiovascular: Normal pulses, Regular rate/rhythm Gastrointestinal: Normal bowel sounds, Soft and benign, Non-distended Integumentary: No erythema, No warmth, No cyanosis, Tenderness/swelling (Pain to the knees) Neurological: Normal speech, Normal strength at 5/5 x4 extr, Normal tone, Dementia - Studies Laboratory Data (last 24 hrs) 07/18/18 12:05: PT 14.9 H, INR 1.27 07/18/18 12:05: WBC 13.6 H, Hgb 9.2 L, Hct 29.8 L, Plt Count 574 H 07/18/18 12:05: Sodium 147 H, Potassium 4.5, BUN 96 H, Creatinine 3.93 H, Glucose 126 H, Magnesium 2.6 H, Total Bilirubin 0.5, AST 47 H, ALT 31, Alkaline Phosphatase 109, Lipase 148 Medications List Reviewed: Yes Assessment & Plan Discharge Plan: Home Plan to discharge in: 24 Hours Physician Review Additional Text: Impression: UTI, failed outpatient therapy, complicated with acute on chronic renal failure stage 4 Hypertension Diabetes mellitus type 2 Hyperlipidemia Recent fall with 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 Slight improvement in renal function noted. Will adjust IV fluids. Will discuss with nephrology. Patient continues on Rocephin. Await urine and blood culture results. Renal ultrasound shows chronic renal disease. Will ambulate patient with physical therapy. Family desires to take patient home at discharge. Will provide medication for pain due to her degenerative arthritis. CT scan reveals no fracture. Elevation in troponin noted. Likely no need for cardiac intervention at this time. Will discuss further with cardiology. Likely discharge in the next 1-2 days. Elevated troponin: Likely underlying CAD. No cardiac complaints at this time. Will check echocardiogram. Likely no need for intervention at this time. Will discuss with cardiology. Hypertension: Continue with home medication. Will monitor and adjust appropriately. Diabetes mellitus type 2: Will continue with Accu-Cheks and sliding scale. Hyperlipidemia: Continue with home medication. 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 CT scan did not reveal any fracture. Will have physical therapy and occupational therapy evaluate patient. Patient desires to go home with home health and physical therapy at discharge. Will monitor closely. Asthma: Will provide medication as needed Anemia of chronic disease: Will evaluate for iron and B12 deficiency. Patient may require supplementation. Will monitor hemoglobin. Time Spent Managing Pts Care (In Minutes): 55
[2018-07-19 10:11] LABS: Ferritin 324.1 ng/mL (8-388)
--- NOTE | 2018-07-19 10:34 | ECHO ---
HEIGHT: 5 ft 5 in WEIGHT: 194 lb 9 oz DATE OF STUDY: 07/19/[address]: Bismark Vang DO 2-DIMENSIONAL: YES M.MODE: YES DOPPLER: YES COLOR FLOW: YES TDS: YES PORTABLE: NO DEFINITY: NO BUBBLE STUDY: NO DIAGNOSIS: HYPERTENSION, ELEVATED TROPONIN CARDIAC HISTORY: CATHERIZATION: SURGERY: PROSTHETIC VALVE: PACEMAKER: MEASUREMENTS (cm) DIASTOLIC (NORMALS) SYSTOLIC (NORMALS) IVSd 1.3 (0.6-1.2) LA Diam 3.6 (1.9-4.0) LVEF 67% LVIDd 3.9 (3.5-5.7) LVIDs 2.5 (2.0-3.5) %FS 36% LVPWd 1.2 (0.6-1.2) Ao Diam 2.7 (2.0-3.7) 2 DIMENSIONAL ASSESSMENT: RIGHT ATRIUM: NORMAL LEFT ATRIUM: NORMAL RIGHT VENTRICLE: NORMAL LEFT VENTRICLE: LEFT VENTRICULAR HYPERTROPHY TRICUSPID VALVE: NORMAL MITRAL VALVE: MITRAL ANNULAR CALCIFICATION PULMONIC VALVE: NORMAL AORTIC VALVE: SCLEROSIS, 3 LEAFLET PERICARDIAL EFFUSION: NONE AORTIC ROOT: NORMAL LEFT VENTRICULAR WALL MOTION: NORMAL DOPPLER/COLOR FLOW: IMPAIRED LEFT VENTRICULAR RELAXATION. NO AORTIC STENOSIS OR AORTIC REGURGITATION. COMMENTS: NORMAL LEFT VENTRICULAR EJECTION FRACTION. LEFT VENTRICULAR HYPERTROPHY. MITRAL ANNULAR CALCIFICATION. AORTIC SCLEROSIS WITH NO AORTIC STENOSIS OR AORTIC REGURGITATION. TECHNOLOGIST: Radha MEI
[2018-07-19] MEDS: D5W 1,000 ML IV SCH (12:20)
--- NOTE | 2018-07-19 13:15 | CON ---
History Of Present Illness: Ms. Mcneil is 87. She came to the hospital with altered mental status and she is found to have urinary tract . She has been started on antibiotics and now seem s to be improving. Two years ago, she had an infection with Enterococcus faecalis that was resistant to Macrodantin. A week ago somebody gave her Macrodantin. I am not sure if there was a culture don e or any culture results. We do not have anything in our hospital records from that. In any event, since she has been in the hospital with urinary tract, sepsis. She has improved. She is receiving c eftriaxone and troponins were drawn and they were abnormal and that is the reason I am asked to see h er. Ms. Mcneil has chronic renal failure with an acute exacerbation. Her creatinine has gone up a s high as 3.93. It is now down to 3.31 and troponins were elevated at 0.26 and 0.19 and 0.17 over ab out a 24 hour period. She does not have EKG changes that suggest myocardial injury or infarction. T here is no previous history of cardiac disease. She has underlying dementia, severe arthritis, dysli pidemia, diabetes, hypertension, and gout. She uses no tobacco, never did, never had myocardial infa rction, stroke, or any vascular surgery. Physical Examination: General: Appears to be her stated age of 87, 5 feet 5 inches, 194 pounds, obese. She is alert. She is oriented to person and place. Lungs: Clear. Cardiac exam: No significant abnormality. Abdomen: Soft. Extremities: Palpable distal pulses. Electrocardiogram reveals low voltage QRS, cannot rule out old anteroseptal CO. It is unchanged from an EKG in 2017. Impression: The troponins are there from sepsis. Procalcitonin level is elevated, consistent with t hat. I think we should do an echocardiogram on her and if there is no wall motion abnormality, we wi ll stop the workup right there. I would not recommend doing any interventional cardiac procedures on Ms. Mcneil at least at this point, with her confusion, underlying dementia and severe renal insufficiency. BROOKE/MODL Voice ID: [id number] Report ID: [id number]
[2018-07-19 16:10] LABS: Urine Protein/Creatinine Ratio 0.53 ratio (<0.15)
[2018-07-19 16:23] LABS: Urine Appearance CLOUDY; Urine Bilirubin NEGATIVE (NEG); Urine Blood 1+ (NEG); Urine Color YELLOW; Urine Glucose NEGATIVE (NEG); Urine Protein 1+ (NEG); Urine Specific Gravity 1.015 (1.005-1.030)
[2018-07-19 16:48] LABS: Urine Microscopic Reflex ORDER UMIC
[2018-07-19 16:56] LABS: Urine Amorphous Sediment 4+ /HPF (NONE SEEN); Urine Bacteria >50 /HPF (<20); Urine Culture Reflex Order REFLEXED
[2018-07-19] MEDS: ATORVASTATIN 10 MG TAB PO SCH (21:43)
[2018-07-20] MEDS: D5W 1,000 ML IV SCH (05:04)
[2018-07-20 06:41] LABS: Albumin 2.2 g/dL (3.4-5.0); Magnesium 2.4 mg/dL (1.8-2.4); Phosphorus 3.7 mg/dL (2.5-4.9); Potassium 4.6 mmol/L (3.5-5.1)
[2018-07-20 06:48] LABS: Absolute Lymphocytes (CBC) 1.9 K/uL (0.7-4.9); Absolute Monocytes 0.4 K/uL (0.1-1.3); Absolute Neutrophil 8.1 K/uL (1.8-8.0); Basophils % 0.8 % (0-1.3); Eosinophils % 5.1 % (0-4.4); Hematocrit 30.4 % (36.0-45.0); MPV 8.9 fL (7.6-11.3); Monocytes % 3.9 % (3.3-12.3); RBC Red Blood Cell Count 3.38 M/uL (3.86-4.86)
[2018-07-20] MEDS: INSULIN -REGULAR HUMAN 50 UNIT/0.5 ML ML SQ SCH ×4 (07:30→21:00)
[2018-07-20] MEDS: ENOXAPARIN 30 MG/0.3 ML SQ SCH (08:15)
[2018-07-20] MEDS: CEFTRIAXONE/SWI 1gm 1 GM/10 ML SYR IVP SCH (08:15)
[2018-07-20] MEDS: AMLODIPINE 5 MG TAB PO SCH (08:16)
[2018-07-20] MEDS: HYDROCODONE/APAP 5/325 MG TAB PO PRN (08:16)
[2018-07-20] MEDS: ASPIRIN 81 MG CHEWABLE TABLET PO SCH (08:18)
[2018-07-20] MEDS: ALLOPURINOL 100 MG TAB PO SCH (08:18)
--- NOTE | 2018-07-20 11:16 | P.PN ---
Subjective Date of Service: 07/20/18 Primary Care Provider: Dr. Wesley Chief Complaint: Fall, failed outpatient therapy for UTI Subjective: Improving, Demented Physical Examination - Vital Signs Temperature: 97.3 F Blood Pressure: 139/65 Pulse: 87 Respirations: 20 Pulse Ox (%): 98 - Physical Exam General: Alert, Demented HEENT: Atraumatic Neck: Supple Respiratory: Clear to auscultation bilaterally, Normal air movement Cardiovascular: Normal pulses, Regular rate/rhythm Gastrointestinal: Normal bowel sounds, Soft and benign, Non-distended, No masses , No rebound, No guarding Neurological: Normal speech, Normal strength at 5/5 x4 extr, Normal tone, Dementia - Studies Microbiology Data (last 24 hrs): 07/18/18 11:53 Catheterized Urine [place] Count - Final >100,000 CFU/ML. 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 Patient still requires max assist with physical therapy. Continue with IV fluids. Slow improvement in renal function. Will transition antibiotic therapy to oral. Will discuss with family about the possible need for skilled placement especially if patient not able to ambulate well today with physical therapy. Patient has degenerative changes to the bones in multiple joints. This may benefit the patient. Cardiology recommends no further intervention. Will discuss with nephrology. Likely discharge in the next 1-2 days. Elevated troponin secondary to infection: Troponin related to infection. Cardiology consulted. Echo unremarkable. No further intervention at this time. Hypertension: Stable. Continue with home medication. Will monitor and adjust appropriately. Diabetes mellitus type 2: Stable. Will continue with Accu-Cheks and sliding scale. Hyperlipidemia: Continue with home medication. 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 CT scan did not reveal any fracture. Physical therapy reports patient still requires max assist. Will see how she does with physical therapy today. If still needing increase physical therapy will recommend skilled placement. Will discuss with family. Other option would be home health with physical therapy at discharge Asthma: Will provide medication as needed Anemia of chronic disease with iron and B12 deficiency: Will continue with iron and B12 supplementation Time Spent Managing Pts Care (In Minutes): 55
[2018-07-20] MEDS ORDERED: CYANOCOBALAMIN 1000MCG/ML INJ IM ONE (11:18)
[2018-07-20] MEDS ORDERED: DOCUSATE NA 100 MG CAP PO PRN (11:18)
[2018-07-20] MEDS: ONDANSETRON 4 MG/2 ML VIAL IV PRN (12:20)
[2018-07-20] MEDS: NACHLORIDE 0.45% 1,000 ML IV SCH (12:20)
[2018-07-20] MEDS: TRAMADOL HCL 50 MG TAB PO PRN (12:20)
--- NOTE | 2018-07-20 13:57 | P.PN ---
Subjective Date of Service: 07/20/18 Primary Care Provider: Dr. Wesley Chief Complaint: Fall, failed outpatient therapy for UTI Subjective: Improving Cr down to 2.9 from 3.9 Cont NS stable VS UTI : Abx switched to Augmentin Physical Examination - Vital Signs Temperature: 97.3 F Blood Pressure: 139/65 Pulse: 87 Respirations: 20 Pulse Ox (%): 98 - Physical Exam General: Alert, In no apparent distress HEENT: Atraumatic Neck: Supple, Without JVD or thyroid abnormality Respiratory: Clear to auscultation bilaterally Cardiovascular: No edema, Regular rate/rhythm, Normal S1 S2, No rubs, No murmurs Gastrointestinal: Normal bowel sounds - Studies Microbiology Data (last 24 hrs): 07/18/18 11:53 Catheterized Urine [place] Count - Final >100,000 CFU/ML. 07/18/18 11:53 Catheterized Urine - Final Proteus Mirabilis Medications List Reviewed: Yes Assessment And Plan - Current Problems (Diagnosis) (1) KANDIS (acute kidney injury) Current Visit: Yes Status: Acute - Plan KANDIS Due to sepsis and prerenal azotemia Cr 1.7 in 2017 Cr in Er 3.9>2.9 onm IVF US: no hydro cont IVF HTN controlled UTI switched to Augmentin as per sensitivity Dm as per primary debility Cont PT/OT
--- NOTE | 2018-07-20 20:59 | PN ---
Date of Progress Note: 07/20/2018 Ms. Mcneil is 87, was seen by Dr. Quiroz on 07/19/2018 because of elevated troponin. It was though t that this is secondary to sepsis. Ms. Mcneil also has severe renal insufficiency and dementia. An echocardiogram that was ordered yesterday showed normal ejection fraction, no wall motion abnormal ities, aortic sclerosis without any stenosis. No further cardiac recommendation regarding Ms. Altman er. We will sign off her case. SHI/JAKE Voice ID: [id number] Report ID: [id number]
[2018-07-20] MEDS: ATORVASTATIN 10 MG TAB PO SCH (22:01)
[2018-07-20] MEDS: AMOX/K CLAV 500 MG TAB PO SCH (22:02)
--- NOTE | 2018-07-21 00:23 | CON ---
Date of Consultation: 07/19/2018 Reason For Consultation: Elevated BUN and creatinine, fluid management. History Of Present Illness: This is a pleasant 87-year-old female with significant past medical hist ory of COPD, diabetes, hypertension, gout, chronic kidney disease. The patient came to the hospital because she is feeling weak for the last few days. [facility], found to have UTI, treated, then discharged. Apparently her symptoms did not impr ove. For that reason, the patient reported back to the hospital, found to have elevated BUN and crea tinine. For that reason, we have been consulted. The patient also found to have elevated BMP. Ther e is no exposure for any IV contrast. Reviewing the record, the patient's creatinine was 1.5 with GF R of 59 back in June 2016. According to the patient, the patient been followed up with Dr. Duran lyles, her primary care on regular basis and never mentioned about any kidney disease. The patient jeramy ontiveros as outpatient. Past Medical History: Includes: 1.Diabetes. 2.Hypertension. 3.Hyperlipidemia. 4.Chronic kidney disease. Past Surgical History: Negative. Home Medications: Includes insulin, pravastatin, sodium bicarb, amlodipine, ciprofloxacin, and colch icine. Family History: Positive for hypertension. Social History: Denies smoking. Denies drinking. Denies drugs abuse. Review of Systems: Head and Neck: No red eye. No ear pain. GI: Has nausea, has fatigue. : No polyuria. Has dysuria. Manager Of Engineering: No vaginal discharge. Respiratory: No shortness of breath. Cardiovascular: No chest pain. Endocrine: No polydipsia. Skin: No rash. Neuro: Generalized fatigue. Musculoskeletal: No joint pain. Physical Examination: General: When I saw the patient, the patient lying in bed. Vital Signs: Blood pressure of 134/63, pulse of 75, afebrile. Chest: Clear to auscultation. Heart: S1, S2. Systolic murmur. Abdomen: Soft, nontender. Extremities: No edema. Neuro: Alert, oriented x3. No focal. Laboratory Data: Lab data for the patient: WBC 11.5, H and H 10.6/33.8, platelets 504. Sodium 148, potassium 4.3, bicarb 17, chloride 120, BUN 84, creatinine 3.3, GFR of 16, calcium 8.6, phosphorous 4, magnesium 2.5, T-sat of 22, albumin 2.4, PTH 249. Urine analysis; specific gravity of 1.015, + 2 protein, PC ratio 0.5. Current Medications: Current medications the patient on in the hospital include aspirin, Augmentin, Lovenox, Zofran. IV fluid. Assessment And Plan: 1.Acute kidney injury secondary to toxic acute tubular necrosis, prerenal secondary to poor perfusio n acute tubular necrosis secondary to poor intake. Given the history of exposure to antibiotic acute interstitial nephritis need to be ruled out. We will send for eosinophil. We will send for renal u ltrasound, protein, creatinine, and I agree with current aggressive hydration, and we will monitor th e patient. 2.Hypertension, controlled optimal. Continue current treatment, keep holding all blood pressure med ication for the time being. 3.Urinary tract infection. We will follow up culture, agree with current antibiotic. 4.Diabetes as by primary. 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 I am going to send for urine electrolyte. Thank you Dr. Vang for allowing us to participate in the care of your patient. SERENE/JAKE Voice ID: [id number] Report ID: [id number]
[2018-07-21] MEDS: HYDROCODONE/APAP 5/325 MG TAB PO PRN ×2 (03:40→17:20)
[2018-07-21] MEDS: NACHLORIDE 0.45% 1,000 ML IV SCH ×2 (03:42→08:00)
[2018-07-21 06:31] LABS: Albumin 2.2 g/dL (3.4-5.0); Magnesium 2.1 mg/dL (1.8-2.4); Phosphorus 3.7 mg/dL (2.5-4.9); Potassium 4.5 mmol/L (3.5-5.1)
[2018-07-21 06:41] LABS: Absolute Lymphocytes (CBC) 1.6 K/uL (0.7-4.9); Absolute Monocytes 0.3 K/uL (0.1-1.3); Absolute Neutrophil 6.5 K/uL (1.8-8.0); Basophils % 0.6 % (0-1.3); Eosinophils % 5.1 % (0-4.4); Hematocrit 28.9 % (36.0-45.0); Lymphocytes % 18.1 % (15.3-44.8); MPV 8.7 fL (7.6-11.3); Monocytes % 3.4 % (3.3-12.3); RBC Red Blood Cell Count 3.19 M/uL (3.86-4.86)
[2018-07-21] MEDS: INSULIN -REGULAR HUMAN 50 UNIT/0.5 ML ML SQ SCH ×4 (07:30→20:11)
[2018-07-21] MEDS: AMLODIPINE 5 MG TAB PO SCH (08:31)
[2018-07-21] MEDS: ENOXAPARIN 30 MG/0.3 ML SQ SCH (08:31)
[2018-07-21] MEDS: CYANOCOBALAMIN 1,000 MCG TAB PO SCH (08:32)
[2018-07-21] MEDS: AMOX/K CLAV 500 MG TAB PO SCH ×2 (08:32→20:10)
[2018-07-21] MEDS: ASPIRIN 81 MG CHEWABLE TABLET PO SCH (08:32)
[2018-07-21] MEDS: FERROUS SULFATE 325 MG TAB PO SCH (08:32)
[2018-07-21] MEDS: ALLOPURINOL 100 MG TAB PO SCH (08:33)
--- NOTE | 2018-07-21 09:48 | P.PN ---
Subjective Date of Service: 07/21/18 Primary Care Provider: Dr. Wesley Chief Complaint: Fall, failed outpatient therapy for UTI Subjective: Other (Patient has improved with physical therapy. This morning patient reports pain to joints.) Physical Examination - Vital Signs Temperature: 97.7 F Blood Pressure: 120/78 Pulse: 82 Respirations: 18 Pulse Ox (%): 100 - Physical Exam General: Alert, In no apparent distress, Cooperative HEENT: Atraumatic Neck: Supple Respiratory: Clear to auscultation bilaterally, Normal air movement Cardiovascular: Normal pulses, Regular rate/rhythm Gastrointestinal: Normal bowel sounds, Soft and benign, Non-distended, No tenderness, No masses Musculoskeletal: Other (Joint pain to shoulders noted) Integumentary: No warmth, No cyanosis Neurological: Normal speech, Normal strength at 5/5 x4 extr, Normal tone, Normal affect - Studies Microbiology Data (last 24 hrs): 07/18/18 11:53 Catheterized Urine Ambia Count - Final >100,000 CFU/ML. 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 Patient continues to work with physical therapy. Patient was working better with physical therapy yesterday. Continue with pain control medication. Continue with antibiotic treatment. Patient will need course of 7 days of antibiotic therapy. UTI prevention education will need to be enforced. Renal function improved. Case discussed at length with 1 of the daughters. Patient may be better served to go to a skilled facility to continue treatment and rehabilitation. Social work to help in making arrangements for skilled placement. Other option of care would be home health and physical therapy at home. Elevated troponin secondary to infection: Troponin related to infection. Cardiology consulted. Echo unremarkable. No further intervention at this time as recommended by Cardiology. Hypertension: Stable. Continue with home medication. Will monitor and adjust appropriately. Diabetes mellitus type 2: Stable. Will continue with Accu-Cheks and sliding scale. Hyperlipidemia: Continue with home medication. Recent fall with degenerative arthritis to the knees: Patient reports pain. Continue with pain medication. Recommended no use of nonsteroidal anti- inflammatories due to her renal disease. CT scan did not reveal any fracture. Physical therapy continues to work with patient. Spoke at length with daughter. I am recommending skilled placement at this time. She seems agreeable. Social work to help in this process with other daughters. Asthma: Will provide medication as needed Anemia of chronic disease with iron and B12 deficiency: Will continue with iron and B12 supplementation. Overall stable. Time Spent Managing Pts Care (In Minutes): 55
[2018-07-21] MEDS: TRAMADOL HCL 50 MG TAB PO PRN ×2 (12:41→21:23)
--- NOTE | 2018-07-21 15:00 | P.PN ---
Subjective Date of Service: 07/21/18 Primary Care Provider: Dr. Wesley Chief Complaint: Fall, failed outpatient therapy for UTI Subjective: Improving Cr down to 2.7 from 3.9 Cont NS stable VS Can remove Barrett , TOV Cleared for discharge from nephrology point of view Physical Examination - Vital Signs Temperature: 97.9 F Blood Pressure: 123/56 Pulse: 88 Respirations: 16 Pulse Ox (%): 97 - Physical Exam General: Alert, Oriented x3 HEENT: Atraumatic Neck: Supple Respiratory: Clear to auscultation bilaterally, Normal air movement Cardiovascular: No edema, Normal pulses, Regular rate/rhythm, No gallops, No rubs, No murmurs Gastrointestinal: Normal bowel sounds, Soft and benign, Non-distended - Studies Medications List Reviewed: Yes Assessment And Plan - Current Problems (Diagnosis) (1) KANDIS (acute kidney injury) Current Visit: Yes Status: Acute - Plan KANDIS Due to sepsis and pre-renal azotemia Cr 1.7 in 2017 Cr in Er 3.9>2.9 on IVF US: no hydro cont IVF can remove Barrett and TOV HTN controlled UTI switched to Augmentin as per sensitivity Dm as per primary Debility Cont PT/OT
[2018-07-21] MEDS: ATORVASTATIN 10 MG TAB PO SCH (20:11)
[2018-07-22] MEDS: HYDROCODONE/APAP 5/325 MG TAB PO PRN ×3 (01:27→18:23)
[2018-07-22 05:21] LABS: Absolute Lymphocytes (CBC) 1.8 K/uL (0.7-4.9); Absolute Monocytes 0.4 K/uL (0.1-1.3); Absolute Neutrophil 5.2 K/uL (1.8-8.0); Basophils % 0.8 % (0-1.3); Eosinophils % 5.8 % (0-4.4); Hematocrit 28.9 % (36.0-45.0); Lymphocytes % 22.4 % (15.3-44.8); MPV 8.6 fL (7.6-11.3); Monocytes % 4.6 % (3.3-12.3); RBC Red Blood Cell Count 3.17 M/uL (3.86-4.86)
[2018-07-22 05:40] LABS: Albumin 2.2 g/dL (3.4-5.0); Magnesium 2.1 mg/dL (1.8-2.4); Phosphorus 3.6 mg/dL (2.5-4.9); Potassium 4.4 mmol/L (3.5-5.1)
[2018-07-22] MEDS: NACHLORIDE 0.45% 1,000 ML IV SCH (06:11)
[2018-07-22] MEDS: TRAMADOL HCL 50 MG TAB PO PRN (06:11)
[2018-07-22] MEDS: INSULIN -REGULAR HUMAN 50 UNIT/0.5 ML ML SQ SCH ×4 (07:30→20:51)
[2018-07-22] MEDS: AMOX/K CLAV 500 MG TAB PO SCH (09:36)
[2018-07-22] MEDS: ALLOPURINOL 100 MG TAB PO SCH (09:37)
[2018-07-22] MEDS: AMLODIPINE 5 MG TAB PO SCH (09:37)
[2018-07-22] MEDS: ASPIRIN 81 MG CHEWABLE TABLET PO SCH (09:37)
[2018-07-22] MEDS: ENOXAPARIN 30 MG/0.3 ML SQ SCH (09:38)
[2018-07-22] MEDS: FERROUS SULFATE 325 MG TAB PO SCH (09:38)
[2018-07-22] MEDS: CYANOCOBALAMIN 1,000 MCG TAB PO SCH (09:38)
--- NOTE | 2018-07-22 12:20 | P.PN ---
Subjective Date of Service: 07/22/18 Primary Care Provider: Dr. Wesley Chief Complaint: Fall, failed outpatient therapy for UTI Subjective: Demented Physical Examination - Vital Signs Temperature: 98.1 F Blood Pressure: 143/63 Pulse: 85 Respirations: 18 Pulse Ox (%): 94 - Physical Exam General: Alert, Demented HEENT: Atraumatic Neck: Supple Respiratory: Clear to auscultation bilaterally, Normal air movement Cardiovascular: Normal pulses, Regular rate/rhythm Gastrointestinal: Normal bowel sounds, Non-distended Neurological: Normal strength at 5/5 x4 extr, Dementia - Studies Medications List Reviewed: Yes Assessment & Plan Discharge Plan: Other (long-term facility) Plan to discharge in: 48 Hours Physician Review Additional Text: Impression: UTI, failed outpatient therapy, complicated with acute on chronic renal failure stage 4, with urine culture positive for Proteus Elevated troponin secondary to infection Hypertension Diabetes mellitus type 2 Hyperlipidemia Recent fall with degenerative arthritis to the knees Asthma Anemia of chronic disease with iron and B12 deficiency Plan: UTI, failed outpatient therapy, complicated with acute on chronic renal failure stage 4 with urine culture positive for Proteus: Patient remains on oral antibiotic therapy. Dc IV fluids. Patient continues with physical therapy. Family has decided on skilled placement. Await skilled placement approval. This will likely occur on Tuesday. Case discussed with daughter Elevated troponin secondary to infection: Troponin related to infection. Cardiology consulted. Echo unremarkable. No further intervention at this time as recommended by Cardiology. Hypertension: Stable. Continue with home medication. Will monitor and adjust appropriately. Diabetes mellitus type 2: Stable. Will continue with Accu-Cheks and sliding scale. Hyperlipidemia: Continue with home medication. 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 Patient continues with medication for pain. Recommended no use of nonsteroidal anti- inflammatories due to her renal disease. CT scan did not reveal any fracture. Physical therapy continues to work with patient. Spoke at length with daughter. I am recommending skilled placement at this time. She seems agreeable. Social work to help in this process with other daughters. Asthma: Will provide medication as needed Anemia of chronic disease with iron and B12 deficiency: Will continue with iron and B12 supplementation. Overall stable. Time Spent Managing Pts Care (In Minutes): 55
--- NOTE | 2018-07-22 15:22 | PN ---
Date of Progress Note: 07/22/2018 Subjective: Patient was admitted with acute kidney injury secondary to UTI, poor perfusion ATN, toxi c ATN. The patient was started on hydration. Kidney function gradually improved. Physical Examination: Vital Signs: Blood pressure 143/63, pulse of 85. Chest: Faint crackles on the base. Heart: S1, S2. Regular. Abdomen: Soft and nontender. Extremity: Trace edema. Laboratory Data: Sodium 142, potassium 4.4, bicarb 19, BUN 65, creatinine 2.3, calcium of 8, phospho manfred 3.6, magnesium of 2.1, H and H 9/28.9, PC ratio 0.5. Current Medications: The patient on its include; aspirin, Augmentin, ferrous sulfate, amlodipine, at orvastatin, Tylenol. Assessment And Plan: 1.Acute kidney injury secondary to prerenal on the recovery phase, looked to me normal volume. I am going to go ahead and discontinue IV fluid and we will monitor the patient. 2.Hypertension controlled, optimal. 3.Urinary tract infection secondary to Proteus mirabilis. Continue current antibiotic. Will follow up the patient. I adjusted the Augmentin to 500 b.i.d. given the kidney function. LUNA Voice ID: [id number] Report ID: [id number]
[2018-07-22] MEDS ORDERED: LACTULOSE 20 GM/30 ML UCUP PO PRN (16:02)
[2018-07-22] MEDS: ATORVASTATIN 10 MG TAB PO SCH (20:50)
[2018-07-22] MEDS ORDERED: AMOX/K CLAV 500 MG TAB PO SCH (21:00)
[2018-07-23] MEDS: HYDROCODONE/APAP 5/325 MG TAB PO PRN ×3 (04:53→23:02)
[2018-07-23 06:21] LABS: Albumin 2.3 g/dL (3.4-5.0); Magnesium 2.2 mg/dL (1.8-2.4); Phosphorus 3.6 mg/dL (2.5-4.9); Potassium 4.4 mmol/L (3.5-5.1)
[2018-07-23 06:30] LABS: Absolute Lymphocytes (CBC) 1.5 K/uL (0.7-4.9); Absolute Monocytes 0.3 K/uL (0.1-1.3); Absolute Neutrophil 5.6 K/uL (1.8-8.0); Basophils % 0.8 % (0-1.3); Hematocrit 28.1 % (36.0-45.0); Lymphocytes % 18.9 % (15.3-44.8); MPV 8.8 fL (7.6-11.3); Monocytes % 4.4 % (3.3-12.3); RBC Red Blood Cell Count 3.13 M/uL (3.86-4.86)
[2018-07-23] MEDS: INSULIN -REGULAR HUMAN 50 UNIT/0.5 ML ML SQ SCH ×4 (07:30→20:34)
--- NOTE | 2018-07-23 08:43 | P.PN ---
Subjective Date of Service: 07/23/18 Primary Care Provider: Dr. Wesley Chief Complaint: Fall, failed outpatient therapy for UTI Subjective: Doing well, Demented Physical Examination - Vital Signs Temperature: 97.8 F Blood Pressure: 123/57 Pulse: 80 Respirations: 18 Pulse Ox (%): 96 - Physical Exam General: Alert, In no apparent distress, Cooperative, Demented HEENT: Atraumatic Neck: Supple Respiratory: Clear to auscultation bilaterally, Normal air movement Cardiovascular: Normal pulses, Regular rate/rhythm Neurological: Normal speech, Normal strength at 5/5 x4 extr, Normal tone, Dementia - Studies Medications List Reviewed: Yes Assessment & Plan Discharge Plan: Other ([facility]irement facility) Plan to discharge in: 24 Hours Physician Review Additional Text: Impression: UTI, failed outpatient therapy, complicated with acute on chronic renal failure stage 4, with urine culture positive for Proteus Elevated troponin secondary to infection Hypertension Diabetes mellitus type 2 Hyperlipidemia Recent fall with 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 Reviewed antibiotic coverage with pharmacy. Continue with current medication. Continue with physical therapy. Family has decided skilled placement for the patient. Awaiting approval. Once ambulating well then will discontinue Barrett catheter. Likely discharge tomorrow if if approved. I will turn the service over to Dr. El tomorrow. I will go over the plan of care with her. Elevated troponin secondary to infection: Troponin related to infection. Cardiology consulted. Echo unremarkable. No further intervention at this time as recommended by Cardiology. Hypertension: Stable. Continue with home medication. Will monitor and adjust appropriately. Diabetes mellitus type 2: Stable. Will continue with Accu-Cheks and sliding scale. Hyperlipidemia: Continue with home medication. 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 Patient continues with medication for pain. Pain improved today. Recommended no use of nonsteroidal anti-inflammatories due to her renal disease. CT scan did not reveal any fracture. Physical therapy continues to work with patient. Awaiting skilled placement approval. Asthma: Will provide medication as needed Anemia of chronic disease with iron and B12 deficiency: Will continue with iron and B12 supplementation. Overall stable. Time Spent Managing Pts Care (In Minutes): 55
[2018-07-23] MEDS: DOCUSATE NA 100 MG CAP PO SCH (08:52)
[2018-07-23] MEDS: ENOXAPARIN 30 MG/0.3 ML SQ SCH (08:52)
[2018-07-23] MEDS: CYANOCOBALAMIN 1,000 MCG TAB PO SCH (08:52)
[2018-07-23] MEDS: AMLODIPINE 5 MG TAB PO SCH (08:52)
[2018-07-23] MEDS: ASPIRIN 81 MG CHEWABLE TABLET PO SCH (08:52)
[2018-07-23] MEDS: FERROUS SULFATE 325 MG TAB PO SCH (08:53)
[2018-07-23] MEDS: ALLOPURINOL 100 MG TAB PO SCH (08:53)
[2018-07-23] MEDS ORDERED: CEFUROXIME 250 MG TAB PO SCH (09:00)
[2018-07-23] MEDS: TRAMADOL HCL 50 MG TAB PO PRN ×2 (11:00→20:28)
[2018-07-23] MEDS: ALPRAZOLAM 0.25 MG TABLET PO PRN ×2 (11:23→21:26)
--- NOTE | 2018-07-23 15:24 | RAD REPORT ---
EXAM DESCRIPTION: RAD - Abdomen 1 View (KUB) - 07/23/2018 2:48 pm CLINICAL HISTORY: Abdomen pain. FINDINGS: The bowel gas pattern is diminished Right pelvic calcifications unchanged from 2014 and likely benign
--- NOTE | 2018-07-23 18:38 | PN ---
Date of Progress Note: 07/23/2018 Subjective: The patient complaining of some abdominal pain, constipation. Physical Examination: Vital Signs: When I saw the patient, blood pressure 146/67, pulse of 97. Chest: Clear to auscultation. Heart: S1, S2. Regular. Abdomen: Tender. No guarding or rebound. Extremities: No edema. Laboratory Data: H and H 9/28.1, WBC 7.9. Sodium 143, potassium 4.4, bicarb 18, chloride 116, BUN 5 5, creatinine 2.2, calcium 8.3, phosphorus 3.6, magnesium 2.2. Current Medications: The patient on is include cefuroxime, aspirin, Lovenox, amlodipine 5 mg, Tyleno l, lactulose, and allopurinol. Assessment And Plan: 1.Acute kidney injury secondary to toxic acute tubular necrosis, poor perfusion acute tubular necros is on recovery phase. We will continue to monitor the patient. 2.Urinary tract infection. Continue current antibiotic secondary to Proteus mirabilis. 3.Deconditioning. Continue PT and OT. 4.Acidosis non-anion gap. No need for bicarb replacement. We will monitor. MA/MODL Voice ID: [id number] Report ID: [id number]
[2018-07-23] MEDS: ATORVASTATIN 10 MG TAB PO SCH (20:26)
[2018-07-23] MEDS: AMOX/K CLAV 500 MG TAB PO SCH (20:27)
[2018-07-24] MEDS: ALPRAZOLAM 0.25 MG TABLET PO PRN (05:34)
[2018-07-24] MEDS: HYDROCODONE/APAP 5/325 MG TAB PO PRN (05:34)
[2018-07-24 06:41] LABS: Albumin 2.3 g/dL (3.4-5.0); Phosphorus 2.3 mg/dL (2.5-4.9); Potassium 5.2 mmol/L (3.5-5.1)
[2018-07-24] MEDS: INSULIN -REGULAR HUMAN 50 UNIT/0.5 ML ML SQ SCH ×4 (07:30→20:56)
[2018-07-24] MEDS: AMOX/K CLAV 500 MG TAB PO SCH ×2 (09:17→20:42)
[2018-07-24] MEDS: CYANOCOBALAMIN 1,000 MCG TAB PO SCH (09:18)
[2018-07-24] MEDS: AMLODIPINE 5 MG TAB PO SCH (09:18)
[2018-07-24] MEDS: ALLOPURINOL 100 MG TAB PO SCH (09:18)
[2018-07-24] MEDS: FERROUS SULFATE 325 MG TAB PO SCH (09:18)
[2018-07-24] MEDS: ASPIRIN 81 MG CHEWABLE TABLET PO SCH (09:18)
[2018-07-24] MEDS: ENOXAPARIN 30 MG/0.3 ML SQ SCH (09:19)
[2018-07-24] MEDS: DOCUSATE NA 100 MG CAP PO SCH (09:19)
[2018-07-24] MEDS: TRAMADOL HCL 50 MG TAB PO PRN (09:20)
--- NOTE | 2018-07-24 17:09 | P.PN ---
Subjective Date of Service: 07/24/18 Primary Care Provider: Dr. Wesley Chief Complaint: Fall, failed outpatient therapy for UTI Patient seen and examined at bedside with RN. Chart reviewed. Case discussed with nephrology and patient at bedside. Currently doing well overall. Awaiting [facility] facility placement at this time. Review of Systems 10-point ROS is otherwise unremarkable Physical Examination - Vital Signs Temperature: 98.3 F Blood Pressure: 151/66 Pulse: 89 Respirations: 17 Pulse Ox (%): 96 - Physical Exam General: Alert, Demented Respiratory: Clear to auscultation bilaterally, Normal air movement Cardiovascular: Regular rate/rhythm, Normal S1 S2 Gastrointestinal: Normal bowel sounds, No tenderness Musculoskeletal: No tenderness Integumentary: No rashes Neurological: Normal tone, Normal affect Lymphatics: No axilla or inguinal lymphadenopathy - Studies Microbiology Data (last 24 hrs): 07/18/18 12:20 Blood - Blood Aerobic Blood Culture - Final No growth in 5 days. 07/18/18 12:20 Blood - Blood Anaerobic Blood Culture - Final No growth in 5 days. 07/18/18 12:05 Blood - Blood Aerobic Blood Culture - Final No growth in 5 days. 07/18/18 12:05 Blood - Blood Anaerobic Blood Culture - Final No growth in 5 days. Medications List Reviewed: Yes Assessment And Plan - Current Problems (Diagnosis) (1) Urinary tract infection Current Visit: Yes Status: Acute Plan: Urinary tract infection without hematuria -urine culture positive for Proteus sensitive to oral Augmentin -switch to oral Augmentin today -will need total for 2 weeks Qualifiers: Urinary tract infection type: acute cystitis Hematuria presence: without hematuria Qualified Code(s): N30.00 - Acute cystitis without hematuria (2) CKD (chronic kidney disease), stage III Onset Date: 04/19/16 Current Visit: No Status: Acute Plan: Acute on chronic kidney injury most likely secondary to UTI -BUN and creatinine improving today -nephrology consulted. Appreciated recommendations at this time -monitor patient here closely (3) CHF (congestive heart failure) Onset Date: 04/19/16 Current Visit: No Status: Chronic Plan: Stable at this time Qualifiers: Heart failure type: diastolic Heart failure chronicity: chronic Qualified Code(s): I50.32 - Chronic diastolic (congestive) heart failure (4) Hyperlipidemia Onset Date: 04/19/16 Current Visit: No Status: Chronic Qualifiers: Hyperlipidemia type: mixed hyperlipidemia Qualified Code(s): E78.2 - Mixed hyperlipidemia (5) Hypertension Onset Date: 04/19/16 Current Visit: No Status: Chronic Qualifiers: Hypertension type: essential hypertension Qualified Code(s): I10 - Essential (primary) hypertension (6) Non-insulin dependent type 2 diabetes mellitus Onset Date: 04/19/16 Current Visit: No Status: Chronic - Plan Pending placement to [facility] facility at this time. Will continue with the Augmentin here in the hospital. Discharge Plan: Other Plan to discharge in: 48 Hours - Code Status/Comfort Care Code Status Assessed: Yes Critical Care: No
[2018-07-24] MEDS: ATORVASTATIN 10 MG TAB PO SCH (20:42)
--- NOTE | 2018-07-25 03:40 | PN ---
Date of Progress Note: 07/24/2018 Chief Complaint: Acute kidney injury secondary to some prerenal azotemia, renal hypoperfusion, and a cute tubular necrosis. Renal function has not improved significantly since yesterday. BUN is 55, cr eatinine is 2.2. The patient was found to have hyperkalemia. Potassium was 5.2. There is no eviden ce of significant metabolic acidosis, though bicarbonate is trending down from 18 to 17 showing some metabolic acidosis is present. Renal function has been improving during this admission. Creatinine was up to 3.93 on July 18 and has slightly improved to 1.97. Since yesterday creatinine has been at stable range from 2.2 to 1.97. Review of Systems: The patient denies fever, chills. Physical Examination: Lungs: Clear to auscultation bilaterally. Heart: S1, S2. Abdomen: Soft, benign. Extremities: Slight edema. Sodium 141, potassium 5.2, chloride 114, CO2 of 17, BUN 42, creatinine 1.97, glucose 136, phosphorus 2.3, calcium 8.2. Impression And Plan: 1.Acute kidney injury on chronic kidney disease, history of benign nephrosclerosis, chronic kidney d isease, stage 3. The patient was found to have urinary tract infection with Proteus mirabilis. Cont inue antibiotics. Adjust dose to renal function. 2.Hypertension. Avoid HOWIE inhibitor due to acute kidney injury and hyperkalemia. Resume low-potass ium diet. Reevaluate potassium level. Start bicarbonate replacement to treat mild metabolic acidosi s and to control hyperkalemia. 3.Chronic kidney disease. Avoid nonsteroidal anti-inflammatory medication. EB/MODL Voice ID: [id number] Report ID: [id number]
[2018-07-25] MEDS: ONDANSETRON 4 MG/2 ML VIAL IV PRN (04:37)
[2018-07-25] MEDS: INSULIN -REGULAR HUMAN 50 UNIT/0.5 ML ML SQ SCH ×4 (07:30→21:00)
[2018-07-25 07:52] LABS: Albumin 2.3 g/dL (3.4-5.0); Phosphorus 2.7 mg/dL (2.5-4.9); Potassium 5.1 mmol/L (3.5-5.1)
[2018-07-25] MEDS: ASPIRIN 81 MG CHEWABLE TABLET PO SCH (09:06)
[2018-07-25] MEDS: SODIUM BICARB 325 MG TAB PO SCH ×2 (09:06→21:02)
[2018-07-25] MEDS: DOCUSATE NA 100 MG CAP PO SCH (09:07)
[2018-07-25] MEDS: ALLOPURINOL 100 MG TAB PO SCH (09:07)
[2018-07-25] MEDS: AMLODIPINE 5 MG TAB PO SCH (09:07)
[2018-07-25] MEDS: ENOXAPARIN 30 MG/0.3 ML SQ SCH (09:07)
[2018-07-25] MEDS: CYANOCOBALAMIN 1,000 MCG TAB PO SCH (09:07)
[2018-07-25] MEDS: FERROUS SULFATE 325 MG TAB PO SCH (09:07)
[2018-07-25] MEDS: AMOX/K CLAV 500 MG TAB PO SCH ×2 (09:18→21:03)
[2018-07-25] MEDS: HYDROCODONE/APAP 5/325 MG TAB PO PRN ×2 (14:42→22:45)
--- NOTE | 2018-07-25 18:35 | P.PN ---
Subjective Date of Service: 07/25/18 Primary Care Provider: Dr. Wesley Chief Complaint: Fall, failed outpatient therapy for UTI Patient seen and examined at bedside with RN. Chart reviewed. Case discussed with nephrology and patient at bedside. Currently doing well overall. Awaiting [facility] placement at this time. Review of Systems 10-point ROS is otherwise unremarkable Physical Examination - Vital Signs Temperature: 97.6 F Blood Pressure: 138/60 Pulse: 81 Respirations: 16 Pulse Ox (%): 98 - Physical Exam General: Alert, In no apparent distress HEENT: Atraumatic, PERRLA, EOMI Neck: Supple, JVD not distended Respiratory: Clear to auscultation bilaterally, Normal air movement Cardiovascular: Regular rate/rhythm, Normal S1 S2 Gastrointestinal: Normal bowel sounds, No tenderness Musculoskeletal: No tenderness Integumentary: No rashes Neurological: Normal speech, Normal tone, Normal affect Lymphatics: No axilla or inguinal lymphadenopathy - Studies Medications List Reviewed: Yes Assessment And Plan - Current Problems (Diagnosis) (1) Urinary tract infection Current Visit: Yes Status: Acute Plan: Urinary tract infection without hematuria -urine culture positive for Proteus sensitive to oral Augmentin -switch to oral Augmentin -will need total for 2 weeks Qualifiers: Urinary tract infection type: acute cystitis Hematuria presence: without hematuria Qualified Code(s): N30.00 - Acute cystitis without hematuria (2) CKD (chronic kidney disease), stage III Onset Date: 04/19/16 Current Visit: No Status: Acute Plan: Acute on chronic kidney injury most likely secondary to UTI -BUN and creatinine improving today -nephrology consulted. Appreciated recommendations at this time -monitor patient here closely (3) CHF (congestive heart failure) Onset Date: 04/19/16 Current Visit: No Status: Chronic Plan: Stable at this time Qualifiers: Heart failure type: diastolic Heart failure chronicity: chronic Qualified Code(s): I50.32 - Chronic diastolic (congestive) heart failure (4) Hyperlipidemia Onset Date: 04/19/16 Current Visit: No Status: Chronic Qualifiers: Hyperlipidemia type: mixed hyperlipidemia Qualified Code(s): E78.2 - Mixed hyperlipidemia (5) Hypertension Onset Date: 04/19/16 Current Visit: No Status: Chronic Qualifiers: Hypertension type: essential hypertension Qualified Code(s): I10 - Essential (primary) hypertension (6) Non-insulin dependent type 2 diabetes mellitus Onset Date: 04/19/16 Current Visit: No Status: Chronic - Plan [facility]ending placement to [facility] at this time. Will continue with the Augmentin here in the hospital. Discharge Plan: Care Home Plan to discharge in: 48 Hours - Code Status/Comfort Care Code Status Assessed: Yes Critical Care: No
[2018-07-25] MEDS: ATORVASTATIN 10 MG TAB PO SCH (21:03)
--- NOTE | 2018-07-26 02:46 | PN ---
Date of Progress Note: 07/25/2018 Chief Complaint: Acute kidney injury secondary to prerenal azotemia, renal hypoperfusion and acute t ubular necrosis. Renal function has not improved significantly since yesterday. There is high BUN a nd creatinine ratio secondary to prerenal azotemia. Potassium level was up to 5.2. There is no evid ence of metabolic acidosis, although primarily patient was started on sodium bicarbonate tablet becau se bicarbonate was dropping to 17 corresponding with mild metabolic acidosis. Renal function has been improving during this admission on arrival to the hospital. On July 18 creati nine was 3.93 and creatinine level is stabilizing at 1.97 to 2.2 range. Review of Systems: Denies fever, chills. Complains of generalized weakness. Denies PND, orthopnea. Physical Examination: Lungs: Clear to auscultation bilaterally. Heart: S1, S2. Abdomen: Soft, benign. Extremities: Slight edema. Impression And Plan: 1.Acute on chronic kidney injury secondary to Acute tubular necrosis. Continue IV fluids to prevent renal hypoperfusion. 2.Hypertension. Continue blood pressure medication. 3.Plan: Avoid HOWIE inhibitor, resume low-potassium diet and start sodium bicarbonate replacement to treat mild metabolic acidosis and to control hyperkalemia. 4.Chronic kidney disease. Avoid nonsteroidal anti-inflammatory medication. EULALIO/JAKE Voice ID: [id number] Report ID: [id number]
[2018-07-26] MEDS: TRAMADOL HCL 50 MG TAB PO PRN (04:48)
[2018-07-26] MEDS: INSULIN -REGULAR HUMAN 50 UNIT/0.5 ML ML SQ SCH ×4 (07:30→21:00)
[2018-07-26 08:08] LABS: Potassium 5.1 mmol/L (3.5-5.1)
[2018-07-26] MEDS: SODIUM BICARB 325 MG TAB PO SCH ×2 (08:52→22:07)
[2018-07-26] MEDS: DOCUSATE NA 100 MG CAP PO SCH (08:52)
[2018-07-26] MEDS: ASPIRIN 81 MG CHEWABLE TABLET PO SCH (08:52)
[2018-07-26] MEDS: AMLODIPINE 5 MG TAB PO SCH (08:52)
[2018-07-26] MEDS: ALLOPURINOL 100 MG TAB PO SCH (08:52)
[2018-07-26] MEDS: FERROUS SULFATE 325 MG TAB PO SCH (08:53)
[2018-07-26] MEDS: AMOX/K CLAV 500 MG TAB PO SCH ×2 (08:53→22:08)
[2018-07-26] MEDS: CYANOCOBALAMIN 1,000 MCG TAB PO SCH (08:53)
[2018-07-26] MEDS: ENOXAPARIN 30 MG/0.3 ML SQ SCH (08:53)
[2018-07-26] MEDS: HYDROCODONE/APAP 5/325 MG TAB PO PRN (09:50)
--- NOTE | 2018-07-26 14:31 | P.DS ---
Admission Date: 07/18/18 Discharge Date: 07/26/18 Primary Care Provider: Dr. Wesley Disposition: ROUTINE DISCHARGE Discharge Condition: FAIR Reason for Admission: Fall, failed outpatient therapy for UTI - Problems (1) Urinary tract infection Current Visit: Yes Status: Acute Qualifiers: Urinary tract infection type: acute cystitis Hematuria presence: without hematuria Qualified Code(s): N30.00 - Acute cystitis without hematuria (2) CKD (chronic kidney disease), stage III Onset Date: 04/19/16 Current Visit: No Status: Acute (3) CHF (congestive heart failure) Onset Date: 04/19/16 Current Visit: No Status: Chronic Qualifiers: Heart failure type: diastolic Heart failure chronicity: chronic Qualified Code(s): I50.32 - Chronic diastolic (congestive) heart failure (4) Hyperlipidemia Onset Date: 04/19/16 Current Visit: No Status: Chronic Qualifiers: Hyperlipidemia type: mixed hyperlipidemia Qualified Code(s): E78.2 - Mixed hyperlipidemia (5) Hypertension Onset Date: 04/19/16 Current Visit: No Status: Chronic Qualifiers: Hypertension type: essential hypertension Qualified Code(s): I10 - Essential (primary) hypertension (6) Non-insulin dependent type 2 diabetes mellitus Onset Date: 04/19/16 Current Visit: No Status: Chronic Brief History of Present Illness: 87-year-old female presented to the emergency room after a fall. She apparently fell to 7 days ago. Since that time patient has been weak. During the course of that time she was seen for UTI in the emergency room. She was discharged home with Macrodantin. Her condition has not improved. Increase fatigue, shortness of breath noted. She has reported some chills at home. No fever noted. She still reports dysuria. Patient came to the ER for further evaluation. In the ER patient evaluated. Vital signs stable. White count elevated at 13.6 , hemoglobin 9.2. Urinalysis positive for UTI. Pro calcitonin 8.16. Sodium 147, potassium 4.5, BUN of 96, creatinine 3.93. GFR of 13. BNP 4555. Troponin 0.17. CT head unremarkable. CT trauma negative. Chest x-ray negative. Patient was admitted for further treatment of her UTI, failed outpatient therapy and acute on chronic renal failure likely with dehydration. When I saw the patient ER, she appeared improved. Patient able to follow commands appropriately. Allergies Hospital Course: Overall during the hospital stay patient remained stable Patient was initially admitted to the hospital for urinary tract infection with failed outpatient therapy. Was started on IV antibiotics here in the hospital. Patient's urine culture was positive for Augmentin. Patient had marked improvement in her symptoms. At that time a decision was made to send patient to a long-term facility for physical therapy and occupational therapy. Patient was accepted had [facility] and thus was transferred there for further care. While here in the hospital patient also had a KI secondary to urinary tract infection. Patient remained on IV fluids initially and her BUN and creatinine improved and thus the IV fluids were discontinued on discharge. Patient's other chronic conditions remained stable while here in the hospital. Vital Signs/Physical Exam: Temp Pulse Resp BP Pulse Ox 97.3 F 91 H 16 142/63 H 97 07/26/18 12:00 07/26/18 12:00 07/26/18 12:00 07/26/18 12:00 07/26/18 12:00 General: Alert, In no apparent distress HEENT: Atraumatic, PERRLA, EOMI Neck: Supple, JVD not distended Respiratory: Clear to auscultation bilaterally, Normal air movement Cardiovascular: Regular rate/rhythm, Normal S1 S2 Gastrointestinal: Normal bowel sounds, No tenderness Musculoskeletal: No tenderness Integumentary: No rashes Neurological: Normal speech, Normal tone, Normal affect Lymphatics: No axilla or inguinal lymphadenopathy Laboratory Data at Discharge: WBC 7.9 K/uL (4.3-10.9) 07/23/18 05:50 Hgb 9.0 g/dL (12.0-15.0) L 07/23/18 05:50 Hct 28.1 % (36.0-45.0) L 07/23/18 05:50 Plt Count 480 K/uL (152-406) H 07/23/18 05:50 PT 14.9 SECONDS (9.5-12.5) H 07/18/18 12:05 INR 1.27 07/18/18 12:05 Sodium 140 mmol/L (136-145) 07/26/18 07:27 Potassium 5.1 mmol/L (3.5-5.1) 07/26/18 07:27 BUN 37 mg/dL (7-18) H 07/26/18 07:27 Creatinine 1.99 mg/dL (0.55-1.3) H 07/26/18 07:27 Glucose 93 mg/dL (74-106) 07/26/18 07:27 Phosphorus 2.7 mg/dL (2.5-4.9) 07/25/18 07:12 Magnesium 2.2 mg/dL (1.8-2.4) 07/23/18 05:50 Total Bilirubin 0.5 mg/dL (0.2-1.0) 07/18/18 12:05 AST 47 U/L (15-37) H 07/18/18 12:05 ALT 31 U/L (12-78) 07/18/18 12:05 Alkaline Phosphatase 109 U/L (45-117) 07/18/18 12:05 Troponin I 0.26 ng/mL (0.0-0.045) H 07/19/18 03:01 Lipase 148 U/L (73-393) 07/18/18 12:05 Home Medications: Albuterol Sulfate [Proair Respiclick] 90 mcg IH BID 04/18/16 Insulin Glargine Human [Lantus*] 10 unit SQ BID 04/18/16 Pravastatin Sodium 40 mg PO DAILY 04/18/16 Aspirin [Jose Chewable Aspirin] 81 mg PO DAILY 04/26/16 Allopurinol 100 mg PO DAILY #30 tablet 05/01/16 Amlodipine [Norvasc*] 5 mg PO DAILY #30 tab 05/01/16 Amox/Clavulanate [Augmentin 500-125 mg Tab] 500 mg PO DAILY #14 tab 07/26/18 New Medications: Amox/Clavulanate [Augmentin 500-125 mg Tab] 500 mg PO DAILY #14 tab Diet: Regular Activity: Ad rosalina Followup: Loren Mendez MD [ACTIVE - CAN ADMIT] - (Follow up in 2-3 weeks with chemistry)
--- NOTE | 2018-07-26 15:59 | PN ---
Date of Progress Note: 07/26/2018 Subjective: The patient doing well, more alert. No nausea. No vomiting. Physical Examination: Vital Signs: Blood pressure of 140/65, pulse of 80, afebrile. The patient had good urine output of 1200. Chest: Clear to auscultation. Heart: S1 and S2, regular. Abdomen: Soft and nontender. Extremities: Trace edema. Laboratory Data: WBC 7.9, H and H 9/28.1, platelet 480. Sodium 140, potassium 5.1, bicarb 21, BUN 3 7, creatinine 1.9, GFR 29, calcium 8.4. PTH of 182. Current Medications: The patient on its include: 1.Aspirin. 2.Lovenox. 3.Augmentin. 4.Amlodipine. 5.Atorvastatin. 6.Alprazolam. 7.Sodium bicarb 650 b.i.d. 8.Docusate. 9.Allopurinol. Assessment And Plan: 1.Acute kidney injury secondary to toxic acute tubular necrosis, poor perfusion acute tubular necros is. Creatinine trending down close to baseline. I am going to continue current treatment. Disconti nue IV fluid. 2.Acidosis, resolved. Continue bicarb oral. 3.Urinary tract infection. Continue current antibiotic. 4.Deconditioning. Continue PT and OT. SERENE/JAKE Voice ID: [id number] Report ID: [id number]
[2018-07-26] MEDS: ATORVASTATIN 10 MG TAB PO SCH (22:07)
[2018-07-27 05:54] VITALS: BP 129/62; TEMP 99
[2018-07-27] MEDS: INSULIN -REGULAR HUMAN 50 UNIT/0.5 ML ML SQ SCH ×2 (07:30→11:30)
[2018-07-27] MEDS: AMLODIPINE 5 MG TAB PO SCH (09:11)
[2018-07-27] MEDS: ASPIRIN 81 MG CHEWABLE TABLET PO SCH (09:11)
[2018-07-27] MEDS: FERROUS SULFATE 325 MG TAB PO SCH (09:11)
[2018-07-27] MEDS: HYDROCODONE/APAP 5/325 MG TAB PO PRN (09:11)
[2018-07-27] MEDS: CYANOCOBALAMIN 1,000 MCG TAB PO SCH (09:12)
[2018-07-27] MEDS: SODIUM BICARB 325 MG TAB PO SCH (09:12)
[2018-07-27] MEDS: ALLOPURINOL 100 MG TAB PO SCH (09:12)
[2018-07-27] MEDS: DOCUSATE NA 100 MG CAP PO SCH (09:12)
[2018-07-27] MEDS: ENOXAPARIN 30 MG/0.3 ML SQ SCH (09:12)
[2018-07-27] MEDS: AMOX/K CLAV 500 MG TAB PO SCH (09:12)
--- NOTE | 2018-07-27 12:26 | P.PN ---
Subjective Date of Service: 07/27/18 Primary Care Provider: Dr. Wesley Chief Complaint: Fall, failed outpatient therapy for UTI Subjective: Improving Cr down to 1.9 from 3.9 stable VS participating in PT/OT Cleared for discharge from nephrology point of view Physical Examination - Vital Signs Temperature: 99 F Blood Pressure: 129/62 Pulse: 87 Respirations: 12 Pulse Ox (%): 98 - Physical Exam General: In no apparent distress HEENT: Atraumatic Neck: Supple, Without JVD or thyroid abnormality Respiratory: Crackles/rales (mild basal rales ) Cardiovascular: No edema, Regular rate/rhythm, No rubs, No murmurs Gastrointestinal: Normal bowel sounds, Soft and benign Musculoskeletal: No swelling Integumentary: No rashes - Studies Medications List Reviewed: Yes Assessment And Plan - Current Problems (Diagnosis) (1) KANDIS (acute kidney injury) Current Visit: Yes Status: Acute - Plan KANDIS Due to sepsis and pre-renal azotemia Cr 1.7 in 2017 Cr improved to 1.9 US: no hydro HTN controlled UTI on Abx Dm as per primary Debility Cont PT/OT
--- NOTE | 2018-07-27 12:43 | P.PN ---
Subjective Date of Service: 07/27/18 Primary Care Provider: Dr. Wesley Chief Complaint: Fall, failed outpatient therapy for UTI Patient seen and examined at bedside with RN. Chart reviewed. Case discussed with nephrology and patient at bedside. Currently doing well overall. Accepted today to the [facility] Review of Systems 10-point ROS is otherwise unremarkable Physical Examination - Vital Signs Temperature: 99 F Blood Pressure: 129/62 Pulse: 87 Respirations: 12 Pulse Ox (%): 98 - Physical Exam General: Alert, In no apparent distress HEENT: Atraumatic, PERRLA, EOMI Neck: Supple, JVD not distended Respiratory: Clear to auscultation bilaterally, Normal air movement Cardiovascular: Regular rate/rhythm, Normal S1 S2 Gastrointestinal: Normal bowel sounds, No tenderness Musculoskeletal: No tenderness Integumentary: No rashes Neurological: Normal speech, Normal tone, Normal affect Lymphatics: No axilla or inguinal lymphadenopathy - Studies Medications List Reviewed: Yes Assessment And Plan - Current Problems (Diagnosis) (1) Urinary tract infection Current Visit: Yes Status: Acute Plan: Urinary tract infection without hematuria -urine culture positive for Proteus sensitive to oral Augmentin -switch to oral Augmentin -will need total for 2 weeks Qualifiers: Urinary tract infection type: acute cystitis Hematuria presence: without hematuria Qualified Code(s): N30.00 - Acute cystitis without hematuria (2) CKD (chronic kidney disease), stage III Onset Date: 04/19/16 Current Visit: No Status: Acute Plan: Acute on chronic kidney injury most likely secondary to UTI -BUN and creatinine improving today -nephrology consulted. Appreciated recommendations at this time -monitor patient here closely (3) CHF (congestive heart failure) Onset Date: 04/19/16 Current Visit: No Status: Chronic Plan: Stable at this time Qualifiers: Heart failure type: diastolic Heart failure chronicity: chronic Qualified Code(s): I50.32 - Chronic diastolic (congestive) heart failure (4) Hyperlipidemia Onset Date: 04/19/16 Current Visit: No Status: Chronic Qualifiers: Hyperlipidemia type: mixed hyperlipidemia Qualified Code(s): E78.2 - Mixed hyperlipidemia (5) Hypertension Onset Date: 04/19/16 Current Visit: No Status: Chronic Qualifiers: Hypertension type: essential hypertension Qualified Code(s): I10 - Essential (primary) hypertension (6) Non-insulin dependent type 2 diabetes mellitus Onset Date: 04/19/16 Current Visit: No Status: Chronic - Plan Accepted today to SNF. 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 Reviewed antibiotic coverage with pharmacy. Continue with current medication. Continue with physical therapy. Family has decided skilled placement for the patient. Awaiting approval. Once ambulating well then will discontinue Barrett catheter. Likely discharge tomorrow if if approved. I will turn the service over to Dr. El tomorrow. I will go over the plan of care with her. Elevated troponin secondary to infection: Troponin related to infection. Cardiology consulted. Echo unremarkable. No further intervention at this time as recommended by Cardiology. Hypertension: Stable. Continue with home medication. Will monitor and adjust appropriately. Diabetes mellitus type 2: Stable. Will continue with Accu-Cheks and sliding scale. Hyperlipidemia: Continue with home medication. 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 Patient continues with medication for pain. Pain improved today. Recommended no use of nonsteroidal anti-inflammatories due to her renal disease. CT scan did not reveal any fracture. Physical therapy continues to work with patient. Awaiting skilled placement approval. Asthma: Will provide medication as needed Anemia of chronic disease with iron and B12 deficiency: Will continue with iron and B12 supplementation. Overall stable.
[2018-07-27 17:35] VITALS: O2SAT 98
== END 2018-07-27 16:14 | DRG 689 ==
LOC: ER 11:06 → ERHOLD 14:28 → 2ND 18:27
PROVIDERS: ADMIT Family Medicine; ATTEND Family Medicine
DX: N30.00 Acute cystitis without hematuria (principal); N17.0 Acute kidney failure with tubular necrosis; I13.0 Hypertensive heart and chronic kidney disease with heart failure and stage 1 through stage 4 chronic kidney disease, or unspecified chronic kidney disease; I50.32 Chronic diastolic (congestive) heart failure; E86.0 Dehydration; B96.4 Proteus (mirabilis) (morganii) as the cause of diseases classified elsewhere; E11.22 Type 2 diabetes mellitus with diabetic chronic kidney disease; N18.3 Chronic kidney disease, stage 3 (moderate); N25.89 Other disorders resulting from impaired renal tubular function; E78.2 Mixed hyperlipidemia; J45.909 Unspecified asthma, uncomplicated; D63.8 Anemia in other chronic diseases classified elsewhere; F03.90 Unspecified dementia, unspecified severity, without behavioral disturbance, psychotic disturbance, mood disturbance, and anxiety; D50.9 Iron deficiency anemia, unspecified; D51.9 Vitamin B12 deficiency anemia, unspecified; E87.5 Hyperkalemia; R53.81 Other malaise; I70.0 Atherosclerosis of aorta; M17.0 Bilateral primary osteoarthritis of knee; Z79.4 Long term (current) use of insulin; Z79.82 Long term (current) use of aspirin; Z79.51 Long term (current) use of inhaled steroids
CPT/HCPCS: 36415; 51702; 70450; 71045; 71250; 72125; 72170; 74018; 76770; 80048; 80069; 80076; 81003; 81015; 82550; 82553; 82570; 82607; 82728; 82962; 83540; 83690; 83735; 83880; 83970; 84132; 84145; 84156; 84300; 84439; 84443; 84466; 84484; 85025; 85610; 87040; 87077; 87086; 87088; 87186; 88108; 93005; 93306; 96361; 96365; 96375; 97110; 97116; 97161; 97167; 97530; 99285; J0696; J1650; J2405; J3010; J3420; J7030